=== PATIENT | female | born 1980 | race Asian ===

== ENCOUNTER 2020-04-22 09:56 | Outpatient (REF) | payer OTHER, SELFPAY ==
[2020-04-22 11:10] LABS: MANUAL DIFF FLAG NO
[2020-04-22 11:17] LABS: Basophils Absolute Auto 0.1 X10*3/uL (0.0-0.2); Eosinophils Absolute Auto 0.1 X10*3/uL (0.0-0.4); Eosinophils Percent Auto 1.2 % (0-4); Hematocrit 40.1 % (37-47); Hemoglobin 13.3 g/dl (12.0-16.0); Lymphocytes Absolute Auto 2.1 X10*3/uL (1.2-4.9); Lymphocytes Percent Auto 41.1 % (20-40); Mean Corpuscular HGB Conc 33.2 g/dl (31.0-35.0); Mean Corpuscular Hemoglobin 28.6 pg (27.0-33.0); Mean Corpuscular Volume 86.2 fL (80-98); Monocytes Absolute Auto 0.4 X10*3/uL (0.1-1.2); Monocytes Percent Auto 7.5 % (2-11); Neutrophils Absolute Auto 2.5 X10*3/uL (2.0-8.3); Neutrophils Percent Auto 49.2 % (45-73); Platelet Count 345 X10*3/uL (160-400); Red Blood Count 4.65 X10*6/uL (4.20-5.50); Red Cell Distribution Width 12.5 % (11.0-16.0); White Blood Count 5.1 X10*3/uL (4.8-10.8)
[2020-04-22 12:04] LABS: Anion Gap 10 (12-20); Blood Urea Nitrogen 10 mg/dL (9-16); Calcium 8.6 mg/dL (8.4-10.2); Carbon Dioxide 23 mmol/L (22-29); Chloride 108 mmol/L (96-108); Cholesterol 139 mg/dL; Estimated Glomerular Filt Rate > 60; Glucose Fasting 86 mg/dL (60-99); HDL Cholesterol 43 mg/dL; LDL Cholesterol Calculated 86 mg/dl; Potassium 3.9 mmol/L (3.3-5.1); Sodium 137 mmol/L (135-145); Triglycerides 53 mg/dL
[2020-04-22 12:11] LABS: Vitamin D 25-OH Total 9.9 ng/mL (>30)
== END 2020-04-22 09:57 | disposition home or self-care (01) ==
LOC: HO.HMGCLDS 09:56
PROVIDERS: PCP Internal Medicine; Visit Provider Internal Medicine
DX: Z00.01 Encounter for general adult medical examination with abnormal findings (principal); I10 Essential (primary) hypertension; E66.9 Obesity, unspecified
CPT/HCPCS: 36415; 80048; 80061; 82306; 85025

== ENCOUNTER 2020-09-16 08:30 | Outpatient (RCR) | payer OTHER, SELFPAY ==
--- NOTE | 2020-09-16 09:27 | MHC.OT.DC ---
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 Pt primarily limited by right shoulder pain .Pt to pursue medical treatment for right shoulder Goals for left lateral epicondylitis met Electronically Signed By: Margy Prajapati OT CHT CLT Reviewed/agree with student documentation: N/A Therapist: Please Sign and return to therapist, thank you for your referral.
== END 2020-09-16 09:28 | disposition other institution (70) ==
LOC: HO.OT 08:30
PROVIDERS: PCP Internal Medicine; Visit Provider Internal Medicine
DX: M77.12 Lateral epicondylitis, left elbow (principal)
CPT/HCPCS: 97035; 97110; 97140; 97165

== ENCOUNTER → 2020-11-03 13:19 | Outpatient (BNVA) | payer OTHER, SELFPAY | PROVIDERS: PCP Internal Medicine; Visit Provider Advanced Practice Midwife ==

== ENCOUNTER 2020-12-09 13:00 | Outpatient (RCR) | payer OTHER, SELFPAY ==
--- NOTE | 2020-11-11 19:42 | MHC.PT.EP ---
[facility] [place] Office [place] Office [place] Office [address] [phone] F: [phone] F: [phone] F: [phone] F: [phone] Physical Therapy Plan of Care Date of Evaluation: Date of Surgery: Diagnosis: R shoulder pain Assessment: Pt is a 40 female referred to PT for eval and treat of R shoulder pain who presents with signs and Sx consistent with R shoulder dysfunction resulting in decreased tolerance for placing objects on a high shelf, pushing/ pulling/ lifting/ carrying objects of weight, as well as reaching her back for hygiene and dressing secondary to decreased R shoulder ROM and strength, decreased scapular posture, TTP of R anterior shoulder, and pain. Pt is deemed an appropriate candidate to receive skilled PT in order to address her physical limitations to improve her functional ability. Frequency and Duration: The patient will be seen 2 x / wk x 5 wks. Short Term Goals: initiate HEP with evidence of compliance. 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 symmetrical AROM achieved. Pt will be able to place objects on high shelf with managed sx; initial: 5/10 pain. Treatment Plan: Modalities to reduce pain, spasms and effusion. Manual therapy to restore motion and function. Therapeutic exercise to improve strength and flexibility. Neuromuscular re-education for posture and balance. Therapeutic activities to return to functional activities of daily living. Electronically signed by: Robe Wright PT. Please sign and return to therapist. Thank you for your referral.
== END 2020-12-09 19:56 | disposition home or self-care (01) ==
LOC: HO.PTCHIC 13:00
PROVIDERS: PCP Internal Medicine; Visit Provider Physician Assistant
DX: M25.511 Pain in right shoulder (principal)
CPT/HCPCS: 97110; 97140; 97161; 97530

== ENCOUNTER 2021-04-13 07:56 | Outpatient (REF) | payer OTHER, SELFPAY ==
[2021-04-13 11:43] LABS: Alanine Aminotransferase 19 U/L (0-31); Anion Gap 13 (12-20); Aspartate Amino Transferase 18 U/L (5-31); Blood Urea Nitrogen 11 mg/dL (9-16); Calcium 9.5 mg/dL (8.4-10.2); Carbon Dioxide 26 mmol/L (22-29); Chloride 104 mmol/L (96-108); Cholesterol 151 mg/dL; Estimated Glomerular Filt Rate > 60; Glucose Fasting 97 mg/dL (60-99); HDL Cholesterol 48 mg/dL; LDL Cholesterol Calculated 92 mg/dl; Potassium 4.5 mmol/L (3.3-5.1); Sodium 138 mmol/L (135-145); Triglycerides 58 mg/dL
[2021-04-13 11:53] LABS: Vitamin D 25-OH Total 15.5 ng/mL (>30)
== END 2021-04-13 07:57 | disposition home or self-care (01) ==
LOC: HO.HMGCLDS 07:56
PROVIDERS: Visit Provider Internal Medicine
DX: Z00.01 Encounter for general adult medical examination with abnormal findings (principal); E66.9 Obesity, unspecified
CPT/HCPCS: 36415; 80048; 80061; 82306; 84450; 84460

== ENCOUNTER 2021-11-07 14:07 | Outpatient (REF) | payer OTHER, SELFPAY ==
[2021-11-08 01:24] LABS: CT PCR NOT DETECTED (Not Detect.); NG PCR NOT DETECTED (Not Detect.)
[2021-11-08 12:20] LABS: BV Int Neg Control Negative (Negative); BV Int Pos Control Positive (Positive)
[2021-11-09 22:26] LABS: HPV mRNA E6/E7 rflx Not Detected (Not Detected)
== END 2021-11-07 14:08 | disposition home or self-care (01) ==
LOC: HO.LNP 14:07
PROVIDERS: Visit Provider Advanced Practice Midwife
DX: Z01.419 Encounter for gynecological examination (general) (routine) without abnormal findings (principal); Z11.51 Encounter for screening for human papillomavirus (HPV); N93.0 Postcoital and contact bleeding
CPT/HCPCS: 87480; 87491; 87510; 87591; 87624; 87660; 88142

== ENCOUNTER 2021-11-24 07:36 | Outpatient (REF) | payer OTHER, SELFPAY ==
--- NOTE | ~2021-11-24 | MM_ITS ---
EXAMINATION: MM SCREENING DIGITAL BREAST TOMOSYNTHESIS, BILATERAL CLINICAL INFORMATION: Screening. Asymptomatic. No prior breast imaging. Age 41. No known family history breast cancer. The lifetime risk of breast cancer based on the Tyrer-Cuzick Model is 12%. COMPARISON: None (current study represents initial baseline exam). TECHNIQUE: Digital breast tomosynthesis is performed in both the craniocaudal and mediolateral oblique views along with computer-aided detection (CAD). Synthesized 2D images are generated from the tomosynthesis. FINDINGS: There are scattered areas of fibroglandular density (ACR BI-RADS breast composition Category b). There are no abnormal calcifications. No architectural abnormality. The axilla and skin contours are unremarkable. Left breast has small focal grouped benign coarse calcification mid 3:00 position suggesting degenerating fibroadenoma. Right breast has subtle equal attenuation oval focal nodular asymmetric density central breast mid depth approximately 0.9 x 1.5 cm with obscured margins. This may be related to a cyst or fibroadenoma or summation artifact. Patient will be recalled for additional imaging. MM/MM tomosynthesis screening BI IMPRESSION: Right: -Oval equal attenuation focal nodular asymmetry central breast. Left: -No mammographic evidence of malignancy. ASSESSMENT: BI-RADS 0: Incomplete - Need Additional Imaging Evaluation RECOMMENDATION: 1. Additional views of the right breast (spot CC, spot ML0). 2. Targeted ultrasound if warranted after review of the additional views. 3. Radiology department staff will contact the patient for additional imaging. This patient's information was entered into a reminder system with a target due date for their next mammogram.
== END 2021-11-24 07:37 | disposition home or self-care (01) ==
LOC: HO.MAMMO 07:36
PROVIDERS: Visit Provider Advanced Practice Midwife
DX: Z12.31 Encounter for screening mammogram for malignant neoplasm of breast (principal)
CPT/HCPCS: 77063; 77067

== ENCOUNTER 2021-12-02 08:56 | Outpatient (REF) | payer OTHER, SELFPAY ==
--- NOTE | ~2021-12-02 | MM_ITS ---
EXAMINATION: MM DIAGNOSTIC DIGITAL BREAST TOMOSYNTHESIS, RIGHT US BREAST TARGETED LIMITED, RIGHT CLINICAL INFORMATION: Right breast density. COMPARISON: Mammography: 11/24/2021 TECHNIQUE: Digital breast tomosynthesis is performed. 2D images are generated from the tomosynthesis. The following views are obtained: Spot compression craniocaudal and mediolateral oblique views. Targeted right breast ultrasound. FINDINGS: There are scattered areas of fibroglandular density (ACR BI-RADS breast composition Category b). There is persistence of density approximately 6 o'clock position 3 cm from the nipple. It measures approximately 1.6 x 1.5 cm in size. Targeted ultrasound evaluation of the right breast demonstrates at approximately 6 o'clock position 3 cm from nipple a hypoechoic lesion with some irregularity of its margins. There is no internal vascularity present. The lesion is wider than it is tall. No abnormal distal sound shadowing is appreciated. The lesion measures approximately 1.2 x 1.2 x 0.9 cm in size. Ultrasound-guided core biopsy is recommended. Results are discussed with the patient at time of visit. Recommendation was called to referring provider's nurseZabrina by breast center patient navigator. MM/MM tomosynthesis added views R IMPRESSION: Right breast lesion 6 o'clock position 3 cm from the nipple which appears solid and for which ultrasound-guided core biopsy is recommended. ASSESSMENT: BI-RADS 4: Suspicious RECOMMENDATION: Ultrasound-guided core biopsy. This patient's information was entered into a reminder system with a target due date for their next mammogram.
== END 2021-12-02 08:57 | disposition home or self-care (01) ==
LOC: HO.MAMMO 08:56
PROVIDERS: Visit Provider Advanced Practice Midwife
DX: N64.89 Other specified disorders of breast (principal)
CPT/HCPCS: 76642; 77061; 77065

== ENCOUNTER → 2021-12-07 12:21 | Outpatient (BNVA) | payer OTHER, SELFPAY | PROVIDERS: PCP Internal Medicine; Visit Provider Obstetrics & Gynecology | DX: N93.0 Postcoital and contact bleeding (principal); N89.8 Other specified noninflammatory disorders of vagina; N88.9 Noninflammatory disorder of cervix uteri, unspecified | CPT/HCPCS: 10160; 99212 ==

== ENCOUNTER 2021-12-09 09:09 | Outpatient (REF) | payer OTHER, SELFPAY ==
--- NOTE | ~2021-12-09 | MM_ITS ---
EXAMINATION: ULTRASOUND GUIDED CORE BIOPSY BREAST, RIGHT POST PROCEDURE DIGITAL BREAST TOMOSYNTHESIS, RIGHT CLINICAL INFORMATION: 41-year-old with macrolobulated mass 6:00 right breast under 1.5 cm noted at baseline imaging, possibly fibroadenoma. COMPARISON: Mammography 11/24/2021, 12/02/2021, targeted right breast ultrasound 12/02/2021. FINDINGS: Proper informed consent is obtained from the patient after discussion of the procedure, potential risks and complications, and alternatives. Patient was given an opportunity for questions. The patient appeared to understand. The patient consented to the procedure and signed the consent form. GUIDANCE: Ultrasound-guided; aseptic technique. LESION: Macrolobulated mass 6:00 position 3 cm from nipple approximately 1.2 cm. APPROACH: Lateral medial. ANESTHESIA: 10 mL carbonated 1% lidocaine. DERMATOTOMY: Single skin boni dermatotomy performed. NEEDLE: 14-gauge Achieve core biopsy device with 13.5-gauge co-axial guide needle. CORES: 5. CLIP: HydroMARK; shape: open coil. POST PROCEDURE DIGITAL BREAST TOMOSYNTHESIS, RIGHT: The post biopsy mammogram is performed in separate room using separate digital tomography equipment from the biopsy procedure. CC and MLO views are obtained. Synthesized 2-D images are generated from the tomography. There are scattered areas of fibroglandular density (breast composition category: b). The clip marker is in position. No gross hematoma. The patient tolerated the procedure well. No immediate complications. Home instructions reviewed with the patient. Final pathology results are pending. MM/MM tomosynthesis diagnostic RT IMPRESSION: 1. Status post ultrasound-guided core biopsy right breast. 2. Clip placed: HydroMARK; shape: open coil. 3. Pathology pending. An addendum report will be issued.
== END 2021-12-09 09:10 | disposition home or self-care (01) ==
LOC: HO.MAMMO 09:09
PROVIDERS: Visit Provider Surgery
DX: R92.8 Other abnormal and inconclusive findings on diagnostic imaging of breast (principal)
CPT/HCPCS: 19083; 77061; 77065; 88305; 99202; A4648

== ENCOUNTER → 2021-12-15 14:36 | Outpatient (BNVA) | payer OTHER, SELFPAY | PROVIDERS: PCP Internal Medicine; Visit Provider Surgery | DX: R92.8 Other abnormal and inconclusive findings on diagnostic imaging of breast (principal) | CPT/HCPCS: 99212 ==

== ENCOUNTER 2021-12-28 07:19 | Outpatient (REF) | payer OTHER, SELFPAY ==
--- NOTE | ~2021-12-28 | MR_ITS ---
EXAMINATION: MR SHOULDER WITHOUT CONTRAST, RIGHT CLINICAL INFORMATION: Right shoulder pain and soreness. COMPARISON: Right shoulder radiographs dated 07/28/2019. TECHNIQUE: MRI of the shoulder without contrast was performed on a high-field scanner. FINDINGS: ROTATOR CUFF: Mild supraspinatus tendinosis without a measurable rotator cuff tendon tear. Mild teres minor muscle atrophy. BICEPS: Intact. CORACOACROMIAL ARCH: The undersurface of the acromion is minimally curved with no subacromial spur. [id number] acromioclavicular osteoarthritis. LABRUM/CAPSULE: Linear fluid signal extending through the undersurface of the posterosuperior labrum, consistent with a nondisplaced undersurface tear. Adjacent paralabral cyst extending into the glenoid notch which measures up to 2.2 x 2.4 x 2.6 cm. GLENOHUMERAL JOINT/MARROW: No acute osseous abnormality. Intact articular cartilage. MR/MR shoulder RT wo con IMPRESSION: 1. Nondisplaced undersurface tear of the posterosuperior labrum with an adjacent paralabral cyst extending into the glenoid notch measuring up to 2.6 cm. 2. Mild supraspinatus tendinosis without a measurable rotator cuff tendon tear. Mild teres minor muscle atrophy. 3. [id number]-cp-[id number] acromioclavicular osteoarthritis.
== END 2021-12-28 07:20 | disposition home or self-care (01) ==
LOC: HO.MRI 07:19
PROVIDERS: Visit Provider Internal Medicine
DX: G89.29 Other chronic pain (principal); M25.511 Pain in right shoulder
CPT/HCPCS: 73221

== ENCOUNTER 2022-02-02 08:37 | Outpatient (AMB) | payer OTHER, SELFPAY ==
[2022-02-02 08:51] VITALS: BP 120/70; PULSE 73; O2SAT 99; BMI 37.3
--- NOTE | 2022-02-02 08:51 | MHC.PC.OV ---
Vital Signs 02/02/22 08:51 Height 5 ft 7 in Weight 238 lb BMI 37.3 BP 120/70 Blood Pressure Location Lt brachial Position Sitting Pulse 73 Pulse Source Pulse Oximeter Pulse Oximetry (%) 99 Oxygen Delivery Method Room Air Intake Visit Reasons: W/C FMLA paperwork Intake Note: Pt is here today to discuss w/c FMLA paperwork Allergies No Known Allergies [No Known Allergies*] Allergy (Verified 09/13/22 11:02) Tobacco use date assessed: 02/02/22 HPI W/C FMLA paperwork HPI Details 41 year old lady here today requesting for her FMLA application to be completed. She had an MRI of her right shoulder last month which showed nondisplaced tear of the posterior superior labrum of her right shoulder with an adjacent paralabral cyst extending into the glenoid notch, and mild supraspinatus tendinosis and mild to moderate acromioclavicular osteoarthritis seen. She has been referred to [facility] for further treatment. She has had physical therapy twice with only partial improvement noted. 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 [facility] Medical History (Updated 09/13/22 @ 11:25 by Arabella Oliveros MD) Chronic right shoulder pain GERD (gastroesophageal reflux disease) Labral tear of shoulder Left lateral epicondylitis Obesity (BMI 35.0-39.9 without comorbidity) JULIETH (obstructive sleep apnea) Osteoarthritis of right AC (acromioclavicular) joint Pelvic floor dysfunction PONV (postoperative nausea and vomiting) depression Right shoulder strain Right shoulder tendinitis Tendinosis of right shoulder Vitamin D deficiency Well woman exam with routine gynecological exam Surgical History (Updated 09/13/22 @ 11:25 by Arabella Oliveros MD) History of lumpectomy Family History Father Emphysema, unspecified CVD (cardiovascular disease) Mother HTN (hypertension) Diabetes mellitus Brother HTN (hypertension) Maternal Grandmother No problems noted. Maternal Grandfather History of CVA (cerebrovascular accident) Brother No problems noted. Sister No problems noted. Sister No problems noted. Son No problems noted. Daughter No problems noted. Maternal Aunt Lung cancer Social History Housing: House Alcohol intake: current Alcohol intake frequency: does not drink Patient Tobacco Use Status: Never used Tobacco e-Cigarette/Vaping Use: Never Used service: Yes Current occupational status: employed Cognitive needs: No Hearing needs: No Vision needs: No Female Reproductive History Menstrual Age of Menarche: 13 Questionnaire Thrive Questionnaire Date Thrive assessed: 04/04/21 JOAO-7 AMB Questionnaire JOAO-7 Date JOAO - 7 assessed: 04/04/21 Source: Developed by Drs. Shady Reynaga, Jennifer Mike, Anuel Abreu and colleagues, with an educational vadim from [employer]. Review of Systems Const All systems reviewed & are unremarkable except as noted in HPI and below Physical exam (Primary Care) Vital Signs: Last Vital Signs Pulse 73 02/02/22 08:51 BP 120/70 02/02/22 08:51 Pulse Ox 99 02/02/22 08:51 Oxygen Delivery Method Room Air 02/02/22 08:51 BMI result Body Mass Index 37.3 Tobacco/Smoking Status: Tobacco use Status Tobacco use date assessed 02/02/22 02/02/22 08:55 Patient Tobacco Use Status Never used Tobacco 02/02/22 08:55 e-Cigarette/Vaping Use Never Used 02/02/22 08:55 Thrive Assessment: Date of Thrive Assessment Date Thrive assessed 04/04/21 02/02/22 08:55 Const General: no acute distress, alert, awake and Physically active Nutritional Appearance: obese Orientation/consciousness: patient oriented x3 Neck Neck: Yes full ROM, Yes no lymphadenopathy and Yes supple Skin General skin exam: no rashes or lesions noted Neuro General: patient oriented x3, gait normal, tone normal, moves all extremities, Normal light touch and pain sensation, no focal motor deficits and CN's II-XI intact bilaterally Extrem Other: Has pain over right AC joint and glenohumeral joint area on abduction more than 90 degrees, positive impingement sign Assessment and Plan Assessment & Plan (1) Labral tear of shoulder: Comment: injured at work 06/2020 Code(s): S43.439A - Superior glenoid labrum lesion of unspecified shoulder, initial encounter Plan: FMLA form completed. Currently being followed at [facility] (2) Osteoarthritis of right AC (acromioclavicular) joint: Code(s): M19.011 - Primary osteoarthritis, right shoulder Plan: Currently being followed at [facility], [facility] form completed (3) Tendinosis of right shoulder: Code(s): M67.813 - Other specified disorders of tendon, right shoulder Plan: Currently being followed at [facility], and family form completed Coding Level of Care Code Est Pt Level 3 (36909) Diagnoses Labral tear of shoulder S43.439A Osteoarthritis of right AC (acromioclavicular) joint M19.011 Tendinosis of right shoulder M67.813
== END 2022-02-02 09:50 | disposition home or self-care (01) ==
LOC: HO.HMGC 08:37
PROVIDERS: PCP Internal Medicine; Visit Provider Internal Medicine
DX: S43.439A Superior glenoid labrum lesion of unspecified shoulder, initial encounter (principal); M19.011 Primary osteoarthritis, right shoulder; M67.813 Other specified disorders of tendon, right shoulder
CPT/HCPCS: 99213

== ENCOUNTER 2022-02-22 11:12 | Outpatient (REF) | payer OTHER, SELFPAY ==
--- NOTE | ~2022-02-22 | US_ITS ---
EXAMINATION: US PELVIS CLINICAL INFORMATION: Postcoital and contact bleeding. Last menstrual period 02/12/2022. COMPARISON: 09/12/2018 TECHNIQUE: Ultrasound of the pelvis is performed using both transabdominal and transvaginal transducers along with Doppler. Transvaginal imaging is performed due to inadequate visualization transabdominally. FINDINGS: The uterus measures 10.5 x 3.9 x 5.6 cm. No discrete fibroids. Endometrial thickness is 1.1 cm. Possible cervical polyp measures 0.9 x 0.5 x 0.8 cm and demonstrates internal vascularity. Adjacent free fluid present in the cervical canal. Right ovary measures 3.2 x 2.0 x 2.6 cm, volume 8.7 mL. Right ovarian 1.4 x 1.7 x 1.1 cm cyst with possible 1.4 x 1.3 x 1.1 cm daughter cyst. Limited visualization. Left ovary measures 2.9 x 1.5 x 2.3 cm, volume 5.2 mL and is grossly unremarkable. Limited visualization. No significant free fluid. US/US pelvic and transvaginal IMPRESSION: Possible cervical polyp 0.9 cm with surrounding fluid. Gynecologic consultation and possible biopsy recommended. Recommend follow-up ultrasound in 6-8 weeks.
== END 2022-02-22 11:13 | disposition home or self-care (01) ==
LOC: HO.US 11:12
PROVIDERS: Visit Provider Obstetrics & Gynecology
DX: N93.0 Postcoital and contact bleeding (principal)
CPT/HCPCS: 76830; 76856

== ENCOUNTER 2022-03-02 09:52 | Outpatient (REF) | payer OTHER, SELFPAY ==
--- NOTE | ~2022-03-02 | MM_ITS ---
EXAMINATION: MM MAMMOGRAM GUIDED RFID LOCALIZATION BREAST, RIGHT CLINICAL INFORMATION: Examination gland or area of recent ultrasound guided core biopsy right breast (fibrocystic change with apocrine metaplasia). COMPARISON: Mammography 11/24/2021, 12/02/2021, ultrasound 12/02/2021, ultrasound-guided core biopsy and postbiopsy mammography 12/09/2021. TECHNIQUE NEEDLE LOC: Proper informed consent is obtained from the patient after discussion of the procedure, potential risks and complications, and alternatives including declining the procedure today. Patient was given an opportunity for questions. The patient appeared to understand. The patient consented to the procedure and signed the consent form. GUIDANCE: Digital mammography. APPROACH: Medial Lateral. TARGET: HydroMARK; shape: open coil. ANESTHESIA: carbonated lidocaine 1%: 7 mL. LOCALIZATION SYSTEM: [employer] LOCallizer Wire-Free Guidance System with 12g needle applicator. RADIOFREQUENCY TAG: ID # [id number]. DERMATOTOMY: Single skin-boni dermatotomy performed. RF Tag ID confirmed with LOCalizer Guidance System prior to placement. The skin is prepped and local anesthesia administered. The needle is positioned and RFID tag deployed. Final images demonstrate the LOCalizer RF tag to reside 3 mm from the biopsy clip on the CC view and 5 mm from the biopsy clip on the ML view. The patient tolerated the procedure well and had no immediate complications. Dressing placed and home instructions reviewed. MM/MM needle loc RT IMPRESSION: -Status post right breast RFID localization.
[2022-03-02] MEDS: Lidocaine HCl 1 % 20 ML VIAL 8 ML SUBCUT (10:51)
[2022-03-02] MEDS: Sodium Bicarbonate 8.4% 50 MEQ/50 ML VIAL SUBCUT (10:52)
== END 2022-03-02 09:53 | disposition home or self-care (01) ==
LOC: HO.MAMMO 09:52
PROVIDERS: PCP Internal Medicine; Visit Provider Surgery
DX: R92.8 Other abnormal and inconclusive findings on diagnostic imaging of breast (principal)
CPT/HCPCS: 19281

== ENCOUNTER 2022-03-09 09:01 | Outpatient (REF) | payer OTHER, SELFPAY | END 2022-03-09 09:02 | disposition home or self-care (01) | LOC: HO.LNP 09:01 | PROVIDERS: Visit Provider Obstetrics & Gynecology | DX: N88.9 Noninflammatory disorder of cervix uteri, unspecified (principal); N89.8 Other specified noninflammatory disorders of vagina; N84.1 Polyp of cervix uteri | CPT/HCPCS: 57454; 88305; 99212 ==

== ENCOUNTER 2022-03-15 06:53 | Day surgery (SDC) | payer OTHER, SELFPAY ==
[2022-01-11 11:36] VITALS: BMI 37.3
[2022-03-08 19:22] VITALS: BMI 36.8
--- NOTE | 2022-03-14 08:34 | HO.ANESPROP2 ---
Documented by User: Natasha Gilbert NP 03/14/22 08:34 HPI - Anesthesia Eval Consult details Narrative: 41yo F for Right Breast Lumpectomy PMFSH Active Problems Active Problems: All Active Problems (Updated 03/09/22 @ 09:36 by Terrence Welch MD) Endocervical polyp (Acute) Acute conjunctivitis, right eye (Acute) Chronic ankle pain (Acute) Vaginal wall cyst (Acute) Abnormal cervix finding (Acute) Postcoital bleeding (Acute) Abnormal ultrasound of breast (Acute) Achilles tendinitis, left leg (Acute) JULIETH (obstructive sleep apnea) (Acute) Tendinosis of right shoulder (Acute) Osteoarthritis of right AC (acromioclavicular) joint (Acute) Labral tear of shoulder (Acute) Chronic right shoulder pain (Acute) Right shoulder tendinitis (Acute) Left lateral epicondylitis (Acute) Vitamin D deficiency (Acute) Obesity (BMI 35.0-39.9 without comorbidity) (Acute) Past Medical History Medical History Chronic right shoulder pain GERD (gastroesophageal reflux disease) Labral tear of shoulder Left lateral epicondylitis Obesity (BMI 35.0-39.9 without comorbidity) JULIETH (obstructive sleep apnea) Osteoarthritis of right AC (acromioclavicular) joint Pelvic floor dysfunction depression Right shoulder strain Right shoulder tendinitis Tendinosis of right shoulder Vitamin D deficiency Well woman exam with routine gynecological exam Family History Family History Father Emphysema, unspecified CVD (cardiovascular disease) Mother HTN (hypertension) Diabetes mellitus Brother HTN (hypertension) Maternal Grandmother No problems noted. Maternal Grandfather History of CVA (cerebrovascular accident) Brother No problems noted. Sister No problems noted. Sister No problems noted. Son No problems noted. Daughter No problems noted. Maternal Aunt Lung cancer Surgical History Surgical History History of lumpectomy Social History Social History Housing: House Alcohol intake: current Patient Tobacco Use Status: Never used Tobacco e-Cigarette/Vaping Use: Never Used Use of substances other than those prescribed or required for medical reasons: No Are you DNR?: No Advance Directives: No Advance Directives Information Provided: Yes Advance Directives on File: No Recently lost weight without trying: No Nutrition Risks: No Nutritional Risk Patient : No service: Yes Current occupational status: employed Cognitive needs: No Hearing needs: No Vision needs: No Meds Allergies Allergy/AdvReac Type Severity Reaction Status Date / Time No Known Allergies Allergy Verified 03/09/22 09:15 [No Known Allergies*] Home Medications Medication Instructions Recorded Confirmed Last Taken Type ferrous sulfate 325 mg (65 mg 325 mg PO Q OTHER DAY 02/02/22 03/08/22 03/01/22 History iron) tablet Exam Exam Date and Time: March 14, 2022 0834 Height,Weight and Vital Signs: Height 5 ft 7 in Weight 106.594 kg Assessment and Plan Assessment Anesthesia Assessment: Chart Reviewed Documented by User: Radha Carver MD 03/15/22 07:51 PMFSH Past Medical History Medical History Chronic right shoulder pain GERD (gastroesophageal reflux disease) Labral tear of shoulder Left lateral epicondylitis Obesity (BMI 35.0-39.9 without comorbidity) JULIETH (obstructive sleep apnea) Osteoarthritis of right AC (acromioclavicular) joint Pelvic floor dysfunction depression Right shoulder strain Right shoulder tendinitis Tendinosis of right shoulder Vitamin D deficiency Well woman exam with routine gynecological exam Family History Family History Father Emphysema, unspecified CVD (cardiovascular disease) Mother HTN (hypertension) Diabetes mellitus Brother HTN (hypertension) Maternal Grandmother No problems noted. Maternal Grandfather History of CVA (cerebrovascular accident) Brother No problems noted. Sister No problems noted. Sister No problems noted. Son No problems noted. Daughter No problems noted. Maternal Aunt Lung cancer Family history of problems with anesthesia: No Surgical History Surgical History History of lumpectomy Social History Social History Housing: House Alcohol intake: current Patient Tobacco Use Status: Never used Tobacco e-Cigarette/Vaping Use: Never Used Use of substances other than those prescribed or required for medical reasons: No Are you DNR?: No Advance Directives: No Advance Directives Information Provided: Yes Advance Directives on File: No Recently lost weight without trying: No Nutrition Risks: No Nutritional Risk Patient : No service: Yes Current occupational status: employed Cognitive needs: No Hearing needs: No Vision needs: No Meds Allergies Allergy/AdvReac Type Severity Reaction Status Date / Time No Known Allergies Allergy Verified 03/09/22 09:15 [No Known Allergies*] Home Medications Medication Instructions Recorded Confirmed Last Taken Type ferrous sulfate 325 mg (65 mg 325 mg PO Q OTHER DAY 02/02/22 03/08/22 03/01/22 History iron) tablet Exam Airway Mallampati Class: II TM Dist: >3cm Neck ROM: Full Heart: rrr Lungs: cta Assessment and Plan Assessment Anesthesia Assessment: Anesthesia Plan Discussed Final Anesthetic Review Family History of Problems with Anesthesia: No NPO: Yes ASA Class: II Final Preanesthetic Review: No Changes in Pt Med Stat, Meds/Allgs Chart Reviewed, Consent Obtained/Reviewed and Anes Risks/Benef Reviewed Patient Risk: Low Procedure Risk: Low Anesthetic Plan Anesthetic Plan: GA and Agree w/ Assess. and Plan Disposition: Standard PACU
[2022-03-15] VITALS (7 sets, daily range): BP systolic 125–152; BP diastolic 78–93; PULSE 61–79; RESP 16–18; TEMP 36.2–36.4; O2SAT 97–100; BMI 36.0
--- NOTE | ~2022-03-15 | MM_ITS ---
EXAMINATION: MM SPECIMEN X-RAY BREAST, RIGHT BREAST CLINICAL INDICATION: Fibrocystic change with apocrine metaplasia. COMPARISON: Mammogram guided RF localization right breast 03/02/2022, ultrasound-guided core biopsy and mammography 12/09/2021, ultrasound right breast 12/02/2021, mammography 12/02/2021 and 11/24/2021. TECHNIQUE: Single radiograph of the excised breast tissue is performed using digital mammography. FINDINGS: The specimen shows the Radiofrequency localizer tag in the specimen. The open coil biopsy clip marker is adjacent to the RF tag. Results were called to Dr. Denzel Harrington in the operating room at the time of imaging.
[2022-03-15 07:23] LABS: UPreg QC Valid YES; Urine Pregnancy NEGATIVE (NEGATIVE)
--- NOTE | 2022-03-15 07:41 | MHC.SHP ---
Pre-Procedural Eval Section A Date of Service: 03/15/22 The patient is an INPATIENT: No Changes since office visit: No Cold of Flu in the past 2 weeks, No New Medical Problems, No Changes in Medication and No Patient answered all questions The History & Physical has been completed within 30 days and I have reviewed it.: No Section B Chief Complaint: rt br abnormal & inconclusive,radiofrequency seed Details of Present Illness: No change is symptoms Relevant Social History: None Present Medications: see Short Stay Collaborative assessment Medical History: No relevant PMH History of Previous Operations: No relevant previous surgery Allergies: Allergies Allergy/AdvReac Type Severity Reaction Status Date / Time No Known Allergies Allergy Verified 03/09/22 09:15 [No Known Allergies*] Review of Systems Sugical H&P ROS: Negative: Constitution, Cardiovascular, Respiratory, Neurological, Psychiatric, Hem-Onc, Allergic/Immunologic, Gastrointestinal, Genitourinary, Musculoskeletal, Integumentary, Endocrine and Eyes/Ears/Nose/Throat Exam Surgical H&P Exam: Normal: HEENT, Normal: Heart, Normal: Lungs, Normal: Extremities, Normal: Abdomen, Normal: Skin and Normal: Neurological Plan Diagnosis/Plan: Unchanged I have reviewed the history and physical and performed a pertinent physical examination on my patient. No changes have occurred unless specified. Time Spent With Patient Time: Total time managing care of this patient today ____ minutes.
[2022-03-15] MEDS: Lactated Ringers 1,000 ML 100 ML IVCONT (07:49)
--- NOTE | 2022-03-15 10:05 | W.PM.OPN ---
Operative Note Operative Note Date of Service: 03/15/22 Narrative: Preoperative diagnosis: Right breast mass Postoperative diagnosis: same Procedure: right breast lumpectomy with radiologic guidance Surgeon: Denzel Harrington MD Sensor Specialist: Jessy Bansal PA-C, MARGUERITE Elias Anesthesia: general LMA Indications for procedure: 41-year-old female patient presenting with a recent mammogram which revealed a density in the right breast in the central portion of the breast. sentinel node biopsy revealed metaplasia without atypia or malignancy. She presents today for a wider excision to assure complete removal at the patient's request. Operative findings: Marking clip and RF tag within the specimen Specimen: right breast lumpectomy Estimated blood loss: 5 mL Complications: none Procedure details: patient was brought the OR placed in a supine position. After administering general anesthesia the patient's right breast was prepped with ChloraPrep and draped in a sterile fashion. A surgical time-out was called the consent confirmed. Preoperative antibiotics were provided. Venodyne boots were in place. Local anesthesia consisting of 0.5% Sensorcaine with epinephrine was then infiltrated around the nipple-areolar complex in the inferior medial portion of the breast. This was carried out through subcutaneous tissue. Superior and inferior skin flaps were then created. Using the RF localizes as a guide a core of tissue surrounding the localizing clip was then performed using electrocautery. Dissection continued along the inferior margin followed by the medial margin superior margin posterior margin and finally the lateral margin. The specimen was removed and the clip confirmed within the specimen. Specimen x-ray confirmed the clip within the specimen. Gross pathology also confirmed the previous biopsy cavity and lesion within the specimen. Wounds were then irrigated with saline solution. Hemostasis was assured using electrocautery and free ties of 3-0 Polysorb. Deep breast tissue was then reapproximated using interrupted 3-0 Polysorb sutures. Superficial breast tissue and dermis were reapproximated using interrupted 3-0 Polysorb sutures. Skin was closed using a running subcuticular 4-0 Polysorb suture. Steri-Strips, 2 x 2 gauze and Tegaderm were then applied. The patient tolerated the procedure well. Sponge, instrument, and needle counts were reported as correct. The patient was transferred to PACU in stable condition.
== END 2022-03-15 11:36 | disposition home or self-care (01) ==
PROVIDERS: Nurse Practitioner; Visit Provider Surgery
PROC: (CPT 19301; principal; 2022-03-15 09:10)
DX: N60.81 Other benign mammary dysplasias of right breast (principal); D24.1 Benign neoplasm of right breast; N60.21 Fibroadenosis of right breast; G47.33 Obstructive sleep apnea (adult) (pediatric); E55.9 Vitamin D deficiency, unspecified; E66.9 Obesity, unspecified; Z68.37 Body mass index [BMI] 37.0-37.9, adult; Z79.1 Long term (current) use of non-steroidal anti-inflammatories (NSAID); Z79.899 Other long term (current) drug therapy
CPT/HCPCS: 19301; 81025; 88307; 88329; J0131; J0690; J1100; J2405; J2795; J3010

== ENCOUNTER → 2022-03-20 09:24 | Outpatient (BNVA) | payer OTHER, SELFPAY | PROVIDERS: Visit Provider Obstetrics & Gynecology | DX: N88.9 Noninflammatory disorder of cervix uteri, unspecified (principal); N84.1 Polyp of cervix uteri; N89.8 Other specified noninflammatory disorders of vagina | CPT/HCPCS: 99212 ==

== ENCOUNTER → 2022-03-23 13:06 | Outpatient (BNVA) | payer OTHER, SELFPAY | PROVIDERS: Visit Provider Physician Assistant Surgical | DX: N63.15 Unspecified lump in the right breast, overlapping quadrants (principal); Z98.890 Other specified postprocedural states | CPT/HCPCS: 99212 ==

== ENCOUNTER 2022-03-31 07:30 | Day surgery (SDC) | payer OTHER, SELFPAY ==
[2022-03-27 11:31] VITALS: BMI 37.7
[2022-03-31] VITALS (7 sets, daily range): BP systolic 129–148; BP diastolic 71–93; PULSE 59–89; RESP 14–18; TEMP 36.4–36.9; O2SAT 96–98
--- NOTE | 2022-03-31 08:39 | HO.ANESPROP2 ---
[facility] Active Problems Active Problems: All Active Problems (Updated 03/27/22 @ 11:10 by Jodi Israel RN) S/P lumpectomy, right breast (Acute) Acute conjunctivitis, right eye (Acute) Chronic ankle pain (Acute) Vaginal wall cyst (Acute) Abnormal cervix finding (Acute) Postcoital bleeding (Acute) Abnormal ultrasound of breast (Acute) Achilles tendinitis, left leg (Acute) Endocervical polyp (Acute) JULIETH (obstructive sleep apnea) (Acute) Tendinosis of right shoulder (Acute) Osteoarthritis of right AC (acromioclavicular) joint (Acute) Labral tear of shoulder (Acute) Chronic right shoulder pain (Acute) Right shoulder tendinitis (Acute) Left lateral epicondylitis (Acute) Vitamin D deficiency (Acute) Obesity (BMI 35.0-39.9 without comorbidity) (Acute) Past Medical History Medical History Chronic right shoulder pain GERD (gastroesophageal reflux disease) Labral tear of shoulder Left lateral epicondylitis Obesity (BMI 35.0-39.9 without comorbidity) JULIETH (obstructive sleep apnea) Osteoarthritis of right AC (acromioclavicular) joint Pelvic floor dysfunction PONV (postoperative nausea and vomiting) depression Right shoulder strain Right shoulder tendinitis Tendinosis of right shoulder Vitamin D deficiency Well woman exam with routine gynecological exam Family History Family History Father Emphysema, unspecified CVD (cardiovascular disease) Mother HTN (hypertension) Diabetes mellitus Brother HTN (hypertension) Maternal Grandmother No problems noted. Maternal Grandfather History of CVA (cerebrovascular accident) Brother No problems noted. Sister No problems noted. Sister No problems noted. Son No problems noted. Daughter No problems noted. Maternal Aunt Lung cancer Family history of problems with anesthesia: No Surgical History Surgical History History of lumpectomy History of Problems with Anesthesia: No Social History Social History Housing: House Alcohol intake: current Alcohol intake frequency: does not drink Patient Tobacco Use Status: Never used Tobacco e-Cigarette/Vaping Use: Never Used Use of substances other than those prescribed or required for medical reasons: No Are you DNR?: No Advance Directives: No Advance Directives Information Provided: Yes service: Yes Current occupational status: employed Cognitive needs: No Hearing needs: No Vision needs: No Meds Allergies Allergy/AdvReac Type Severity Reaction Status Date / Time No Known Allergies Allergy Verified 03/23/22 13:34 [No Known Allergies*] Active Medications: Current Medications Lactated Ringer's (Lr) 1,000 mls @ 80 mls/hr IVCONT .[id number] [facility] Home Medications Medication Instructions Recorded Confirmed Last Taken Type ferrous sulfate 325 mg (65 mg 325 mg PO Q OTHER DAY 02/02/22 03/08/22 03/01/22 History iron) tablet Exam Exam Date and Time: March 31, 2022 0839 Height,Weight and Vital Signs: Height 5 ft 7 in Weight 109.316 kg Airway Mallampati Class: II TM Dist: >3cm Neck ROM: Full Loose/Missing/Broken Teeth: No Heart: RRR Lungs: CTA Assessment and Plan Assessment Anesthesia Assessment: Anesthesia Plan Discussed and Chart Reviewed Final Anesthetic Review Family History of Problems with Anesthesia: No History of Problems with Anesthesia: No NPO: Yes ASA Class: III Final Preanesthetic Review: Meds/Allgs Chart Reviewed and Anes Risks/Benef Reviewed Patient Risk: Intermediate Procedure Risk: Low Anesthetic Plan Anesthetic Plan: GA Disposition: Standard PACU
[2022-03-31] MEDS: Lactated Ringers 1,000 ML 80 ML IVCONT (08:47)
[2022-03-31 08:58] LABS: UPreg QC Valid YES; Urine Pregnancy NEGATIVE (NEGATIVE)
[2022-03-31] MEDS: Scopolamine 1.5 MG PATCH.TD.3 TRANSDERMA (09:01)
--- NOTE | 2022-03-31 09:08 | MHC.SHP ---
Pre-Procedural Eval Section A Date of Service: 03/31/22 Section B Chief Complaint: Polyp of cervix uteri,disorder of cervix and vagin Allergies: Allergies Allergy/AdvReac Type Severity Reaction Status Date / Time No Known Allergies Allergy Verified 03/23/22 13:34 [No Known Allergies*] Plan I have reviewed the history and physical and performed a pertinent physical examination on my patient. No changes have occurred unless specified. Time Spent With Patient Time: Total time managing care of this patient today ____ minutes.
--- NOTE | 2022-03-31 10:08 | P.BOP_ITS ---
Brief Operative Note Date of Service: 03/31/22 Pre-op diagnosis: Vaginal cyst wall and endocervical polyp Post-op diagnosis: same Procedure: Hysteroscopy D&C, Polypectomy with vaginal cyst wall I&D and marsupialization Surgeon: Terrence Welch MD Anesthesia: GLMA Was an Police Dispatcher used for this Procedure?: No Estimated blood loss (mL): 0 Pathology: other (Endometrial Scrapping. Polyp) Condition: stable Disposition: PACU
--- NOTE | 2022-03-31 10:09 | W.PM.OPN ---
Operative Note Operative Note Date of Service: 03/31/22 Narrative: Preop Diagnosis: Endocervical polyp and right vaginal cyst wall Operation: Diagnostic Hysteroscopy, Dilataion & Curettage and polypectomy, right vaginal cyst wall I&D and marsupialization Post Op Diagnosis: Endometrial Polyp, right vaginal cyst wall QBL: Minimal Anesthesia: GLMA Surgeon: Terrence Welch MD International Trade Teacher: None Complication: None Pathology: Endometrial Scrapings, Endometrial polyp Procedure: The patient was put in the dorsal lithotomy position, scrubbed, and draped in the usual manner. A sterile speculum was inserted in the patient's vagina. Right vaginal cyst wall was identified, using a scalpel I&D was performed and a 3 cc of mucousy bloody discharge drained, then 2 sutures 3-0 Vicryl were used to suture the cyst wall was sutured to the vaginal mucosa, and the and hemostasis was assured . Next, the anterior lip of the cervix was grasped with a single tooth tenaculum. The cervix was dilated up to 5 mm, then the scope was inserted in the patient's uterus. Inspection revealed endocervical polyp. The Myosure Reach device was used; it was introduced through the operative channel and polypectomy done with no complications. The scope was then taken out from the uterine cavity, sharp curettings was carried on with minimal to moderate amount of tissues retrieved. At the end of the procedure, all instruments were taken out of the patient uterine and vaginal cavity. The single tooth tenaculum was removed and homeostasis was assured using pressure,. The patient tolerated the procedure well and was transferred to the PACU in a stable condition.
[2022-03-31] MEDS: oxyCODONE HCl Immed Release 5 MG TABLET PO (10:30)
[2022-03-31] MEDS: Acetaminophen 325 MG TABLET 650 MG PO (10:31)
== END 2022-03-31 11:30 | disposition home or self-care (01) ==
PROVIDERS: Anesthesiology; Visit Provider Obstetrics & Gynecology
PROC: 0UDB8ZZ Extraction of Endometrium, Via Natural or Artificial Opening Endoscopic (ICD-10-PCS; CPT 58558; principal; 2022-03-31 09:30)
DX: N84.1 Polyp of cervix uteri (principal); N90.7 Vulvar cyst; G47.33 Obstructive sleep apnea (adult) (pediatric); E66.9 Obesity, unspecified; Z68.36 Body mass index [BMI] 36.0-36.9, adult
CPT/HCPCS: 58558; 58999; 81025; 88305; J1885; J2405; J3010

== ENCOUNTER 2022-04-17 11:44 | Outpatient (AMB) | payer OTHER, SELFPAY ==
--- NOTE | 2022-04-17 12:23 | MHC.PC.OV ---
Vital Signs 04/17/22 12:27 Height 5 ft 7 in Weight 245 lb 8 oz BMI 38.4 BP 138/90 H Blood Pressure Location Rt brachial Position Sitting Pulse 59 Pulse Source Pulse Oximeter Pulse Oximetry (%) 97 Oxygen Delivery Method Room Air Intake Visit Reasons: Pressure Headaches Intake Note: Pt is here c/o of having pressure headaches. Allergies No Known Allergies [No Known Allergies*] Allergy (Verified 09/13/22 11:02) Medication List - Last Reconciled 10/25/22 by Arabella Oliveros MD albuterol sulfate 90 mcg/actuation 1 inh inhalation QID PRN amlodipine 5 mg PO DAILY cholecalciferol (vitamin D3) 25 mcg PO DAILY clotrimazole 1% 1 appl topical BID magnesium oxide 250 mg PO DAILY omeprazole 40 mg PO DAILY PRN vitamin B complex 1 tab PO DAILY Tobacco use date assessed: 04/17/22 HPI Pressure Headaches HPI Details 41-year-old lady here today complaining of intermittent episode of throbbing headache, which starts on the back of her head sometimes spreading to the sides and above her eyes. This has been ongoing now for the last several days. When taking ibuprofen and has also tried taking meloxicam both of which has not helped. Denies photophobia, no nausea, no vomiting, no lightheadedness no change in vision accompanying headache. [facility] Medical History (Updated 09/13/22 @ 11:25 by Arabella Oliveros MD) Chronic right shoulder pain GERD (gastroesophageal reflux disease) Labral tear of shoulder Left lateral epicondylitis Obesity (BMI 35.0-39.9 without comorbidity) JULIETH (obstructive sleep apnea) Osteoarthritis of right AC (acromioclavicular) joint Pelvic floor dysfunction PONV (postoperative nausea and vomiting) depression Right shoulder strain Right shoulder tendinitis Tendinosis of right shoulder Vitamin D deficiency Well woman exam with routine gynecological exam Surgical History (Updated 09/13/22 @ 11:25 by Arabella Oliveros MD) History of lumpectomy Family History Father Emphysema, unspecified CVD (cardiovascular disease) Mother HTN (hypertension) Diabetes mellitus Brother HTN (hypertension) Maternal Grandmother No problems noted. Maternal Grandfather History of CVA (cerebrovascular accident) Brother No problems noted. Sister No problems noted. Sister No problems noted. Son No problems noted. Daughter No problems noted. Maternal Aunt Lung cancer Social History Housing: House Alcohol intake: current Alcohol intake frequency: does not drink Patient Tobacco Use Status: Never used Tobacco e-Cigarette/Vaping Use: Never Used service: Yes Current occupational status: employed Cognitive needs: No Hearing needs: No Vision needs: No Female Reproductive History Menstrual Age of Menarche: 13 Questionnaire Thrive Questionnaire Date Thrive assessed: 04/04/21 AUDIT C Alcohol Use Questionnaire (AUDIT-C) 1. How often do you have a drink containing alcohol?: Never 3. How often do you have six or more drinks on one occasion?: Never Total Score: 0 JOAO-7 AMB Questionnaire JOAO-7 Date JOAO - 7 assessed: 04/04/21 Source: Developed by Drs. Shady Reynaga, Jennifer Mike, Anuel Abreu and colleagues, with an educational vadim from [employer]. Review of Systems Const Denies body aches, Denies fatigue, Denies fever(s) and Denies weakness Eyes Denies change in vision, Denies eye discharge and Denies itchy eyes ENT Denies dizziness, Denies nasal congestion, Denies nasal discharge and Denies sore throat Card Denies chest pain, Denies lightheadedness, Denies palpitations and Denies dyspnea Resp Denies chest congestion, Denies cough, Denies dyspnea and Denies wheezing GI Denies abdominal pain, Denies change in bowel habits and Denies heartburn Neuro Denies dizziness and Denies weakness Endo Denies fatigue, Denies polydipsia, Denies polyuria and Denies palpitations Aller/Immun Denies itchy eyes, Denies seasonal rhinorrhea and Denies wheezing Physical exam (Primary Care) Vital Signs: Last Vital Signs Pulse 59 04/17/22 12:27 BP 138/90 H 04/17/22 12:27 Pulse Ox 97 04/17/22 12:27 Oxygen Delivery Method Room Air 04/17/22 12:27 BMI result Body Mass Index 38.4 Tobacco/Smoking Status: Tobacco use Status Tobacco use date assessed 04/17/22 04/17/22 12:28 Patient Tobacco Use Status Never used Tobacco 04/17/22 12:23 e-Cigarette/Vaping Use Never Used 04/17/22 12:23 Thrive Assessment: Date of Thrive Assessment Date Thrive assessed 04/04/21 04/17/22 12:23 Const General: comfortable, no acute distress, awake and Physically active Nutritional Appearance: obese Orientation/consciousness: patient oriented x3 HENMT Head: Yes normocephalic and Yes atraumatic Ears: hearing grossly normal bilaterally, external ears normal, TM's normal bilaterally and EAC's normal General nose exam: Normal external nose present Face and sinus: Yes sinuses nontender and Yes face symmetric Mouth: Normal oral and palatal mucosa present, oropharynx normal and moist mucous membranes Eyes General: appearance normal, both eyes and all related structures Neck Neck: Yes normal visual inspection, Yes full ROM, Yes no lymphadenopathy and Yes supple Resp Auscultation: clear to auscultation bilaterally Cardio Rate: regular rate Rhythm: regular rhythm Heart sounds: S1 normal heart sound present and S2 normal heart sound present Skin General skin exam: no rashes or lesions noted Neuro General: patient oriented x3, gait normal, tone normal, moves all extremities, Normal light touch and pain sensation, no focal motor deficits, CN's II-XI intact bilaterally and normal sensation to monofilament Assessment and Plan Assessment & Plan (1) Vascular headache: Comment: ? Migraine headache, [facility], no relief with topiramate, advised to try Botox injections Code(s): G44.1 - Vascular headache, not elsewhere classified Plan: Will try on Fioricet, 1 capsule every 12 hours as needed for severe headache, if no improvement, advised to [facility] for [facility] Medications: New tqoppnorwz-rmascodcorgna-hvwt 50-300-40 mg (Fioricet) 1 cap PO Q12H PRN 10 caps 0RF headache omeprazole 20 mg PO DAILY PRN 30 caps 1RF heartburn Discontinued ibuprofen Discontinued Reason: Doctor's Order 800 mg PO Q8H 45 tabs 0RF meloxicam Discontinued Reason: Doctor's Order 15 mg PO DAILY 14 tabs 0RF Coding Level of Care Code Est Pt Level 3 (58821) Diagnoses Vascular headache G44.1
[2022-04-17 12:27] VITALS: BP 138/90; PULSE 59; O2SAT 97; BMI 38.4
== END 2022-04-17 14:17 | disposition home or self-care (01) ==
LOC: HO.HMGC 11:44
PROVIDERS: PCP Internal Medicine; Visit Provider Internal Medicine
DX: G44.1 Vascular headache, not elsewhere classified (principal)
CPT/HCPCS: 99213

== ENCOUNTER → 2022-04-18 13:21 | Outpatient (BNVA) | payer OTHER, SELFPAY | PROVIDERS: PCP Internal Medicine; Visit Provider Obstetrics & Gynecology | DX: N84.1 Polyp of cervix uteri (principal) | CPT/HCPCS: 99212 ==

== ENCOUNTER 2022-09-13 10:29 | Outpatient (AMB) | payer OTHER, SELFPAY ==
--- NOTE | 2022-09-13 10:43 | A.OFFPC_ITS ---
Vital Signs 09/13/22 10:44 Height 5 ft 7 in Weight 249 lb BMI 39.0 BP 138/90 H Blood Pressure Location Lt brachial Position Sitting Pulse 97 Pulse Source Pulse Oximeter Pulse Oximetry (%) 97 Oxygen Delivery Method Room Air Intake Visit Reasons: Follow up Intake Note: Pt is here today lingering cough Allergies No Known Allergies [No Known Allergies*] Allergy (Verified 09/13/22 11:02) Medication List - Last Reconciled 09/13/22 by Arabella Oliveros MD albuterol sulfate 90 mcg/actuation 1 inh inhalation QID PRN amlodipine 5 mg PO DAILY cholecalciferol (vitamin D3) 25 mcg PO DAILY clotrimazole 1% 1 appl topical BID magnesium oxide 250 mg PO DAILY omeprazole 40 mg PO DAILY PRN vitamin B complex 1 tab PO DAILY Tobacco use date assessed: 09/13/22 Dental Screening Dental Screen Date: 09/13/22 Did you have a dental visit in the last 12 months?: Yes Was dental information given to patient?: Patient has dentist HPI Follow up HPI Details 41-year-old lady here today complaining of recurrent episode of nonproductive cough accompanied by wheezing, worse when the weather is hot or with occasional moderate exertion. Has been using her albuterol inhaler which has afforded only temporary relief. [facility] Medical History (Updated 09/13/22 @ 11:25 by Arabella Oliveros MD) Chronic right shoulder pain GERD (gastroesophageal reflux disease) Labral tear of shoulder Left lateral epicondylitis Obesity (BMI 35.0-39.9 without comorbidity) JULIETH (obstructive sleep apnea) Osteoarthritis of right AC (acromioclavicular) joint Pelvic floor dysfunction PONV (postoperative nausea and vomiting) depression Right shoulder strain Right shoulder tendinitis Tendinosis of right shoulder Vitamin D deficiency Well woman exam with routine gynecological exam Surgical History (Updated 09/13/22 @ 11:25 by Arabella Oliveros MD) History of lumpectomy Family History Father Emphysema, unspecified CVD (cardiovascular disease) Mother HTN (hypertension) Diabetes mellitus Brother HTN (hypertension) Maternal Grandmother No problems noted. Maternal Grandfather History of CVA (cerebrovascular accident) Brother No problems noted. Sister No problems noted. Sister No problems noted. Son No problems noted. Daughter No problems noted. Maternal Aunt Lung cancer Social History Housing: House Alcohol intake: current Alcohol intake frequency: does not drink Patient Tobacco Use Status: Never used Tobacco e-Cigarette/Vaping Use: Never Used service: Yes Current occupational status: employed Cognitive needs: No Hearing needs: No Vision needs: No Female Reproductive History Menstrual Age of Menarche: 13 Questionnaire PHQ-9 Over the last 2 weeks, how often have you been bothered by any of the following problems? 1. Little interest or pleasure in doing things: not at all 2. Feeling down, depressed, or hopeless: not at all 3. Trouble falling or staying asleep, or sleeping too much: several days 4. Feeling tired or having little energy: several days 5. Poor appetite or overeating: several days 6. Feeling bad about yourself - or that you are a failure or have let yourself or your family down: not at all 7. Trouble concentrating on things, such as reading the newspaper or watching television: not at all 8. Moving or speaking so slowly that other people could have noticed. Or the opposite - being so fidgety or restless that you have been moving around a lot more than usual: not at all 9. Thoughts that you would be better off or of hurting yourself in some way: not at all Total score: 3 Depression Screening Interpretation: Negative Source: Developed by Drs. Shady Reynaga, Jennifer Mike, Anuel Abreu and colleagues, with an educational vadim from [employer]. Thrive Questionnaire Date Thrive assessed: 09/13/22 What is your living situation today?: I have a steady place to live Within the past 12 months, did the food you bought not last and you didn't have the money to get more?: Never true Within the past 12 months, did you worry whether your food would run out before you got money to buy more?: Never true Do you have trouble getting transportation to medical appointments?: No Do you have trouble paying your heating and electricity bill?: No Do you have trouble taking care of your child, family member or friend?: No Do you have trouble with day-to-day activities such as bathing, preparing meals, shopping, managing finances, etc.?: No Are you currently unemployed and looking for a job?: No Are you interested in more education?: No AUDIT C Alcohol Use Questionnaire (AUDIT-C) 1. How often do you have a drink containing alcohol?: Never Total Score: 0 JOAO-7 AMB Questionnaire JOAO-7 Date JOAO - 7 assessed: 04/04/21 Source: Developed by Drs. Shady Reynaga, Jennifer Mike, Anuel Abreu and colleagues, with an educational vadim from [employer]. Review of Systems Const All systems reviewed & are unremarkable except as noted in HPI and below Physical exam (Primary Care) Vital Signs: Last Vital Signs Pulse 97 09/13/22 10:44 BP 138/90 H 09/13/22 10:44 Pulse Ox 97 09/13/22 10:44 Oxygen Delivery Method Room Air 09/13/22 10:44 BMI result Body Mass Index 39.0 Tobacco/Smoking Status: Tobacco use Status Tobacco use date assessed 09/13/22 09/13/22 10:51 Patient Tobacco Use Status Never used Tobacco 09/13/22 10:51 e-Cigarette/Vaping Use Never Used 09/13/22 10:51 Depression Screening Interpretation: Negative Thrive Assessment: Date of Thrive Assessment Date Thrive assessed 04/04/21 09/13/22 10:51 Const General: comfortable, no acute distress and alert Nutritional Appearance: obese Orientation/consciousness: patient oriented x3 HENMT Ears: hearing grossly normal bilaterally and external ears normal General nose exam: Normal external nose present and No nasal discharge present Face and sinus: Yes sinuses nontender and Yes face symmetric Mouth: Normal oral and palatal mucosa present, oropharynx normal and moist mucous membranes Neck Neck: Yes full ROM, Yes no lymphadenopathy and Yes supple Resp Effort & Inspection: normal respiratory effort and able to speak in complete sentences Auscultation: clear to auscultation bilaterally GI Inspection: Yes obesity Palpation (GI): Soft to palpation, nontender, no guarding and no masses Neuro General: patient oriented x3 Assessment and Plan Assessment & Plan (1) Recurrent nonproductive cough: Code(s): R05.8 - Other specified cough Plan: Ordered PFT with methacholine challenge, to rule out asthma. In the meantime continue using albuterol inhaler as needed for episodes of cough with bronchospasm Orders: Orders PFT pulmonary function test Today R05.8 - Other specified cough RT pft w methacholine Today R05.8 - Other specified cough Coding Level of Care Code Est Pt Level 3 (23739) Diagnoses Recurrent nonproductive cough R05.8
[2022-09-13 10:44] VITALS: BP 138/90; PULSE 97; O2SAT 97; BMI 39.0
== END 2022-09-13 11:17 | disposition home or self-care (01) ==
PROVIDERS: PCP Internal Medicine; Visit Provider Internal Medicine
DX: R05.8 Other specified cough (principal)
CPT/HCPCS: 99213

== ENCOUNTER 2022-10-30 10:23 | Outpatient (REF) | payer OTHER, SELFPAY ==
--- NOTE | 2022-10-30 11:19 | PFT_ITS ---
INDICATION: Cough. SPIROMETRY: FEV to FVC of 68% post-bronchodilators with an FVC of 2.78 L, which is 68% predicted and FEV1 of 1.9 L, which is 67% predicted. No significant response to bronchodilator is noted. Maximum voluntary ventilation is 29% predicted. LUNG VOLUMES: Total lung capacity 65% predicted with an expiratory reserve volume of 13% predicted. DIFFUSION CAPACITY: DLCO 85% predicted. COMPARISONS: None. INTERPRETATION: There appears to be a moderate restrictive ventilatory defect although she did not have an obstruction during the pre-bronchodilator measurements suggesting a possibility of . There is a severe decrease in maximum voluntary ventilation secondary to deconditioning and also cannot rule out neuromuscular condition. Lung volumes also demonstrated restrictive ventilatory defect consistent with mild to moderate restrictive lung disease. In part, this could be secondary to the elevated BMI although neuromuscular conditions cannot be ruled out. Normal decreasing capacity. If asthma is in the differential, a methacholine challenge would be helpful in assessing for hyperactive airways disease. Clinical correlation warranted. MD SAUL Manuel/DASHAWN / [id number]
== END 2022-10-30 10:24 | disposition home or self-care (01) ==
LOC: HO.RESP 10:23
PROVIDERS: PCP Internal Medicine; Visit Provider Internal Medicine
DX: R05.8 Other specified cough (principal)
CPT/HCPCS: 94010; 94727; 94729

== ENCOUNTER → 2022-10-30 11:19 | Outpatient (BNV) | payer OTHER, SELFPAY | PROVIDERS: PCP Internal Medicine; Visit Provider Hospitalist | DX: R05.9 Cough, unspecified (principal); G47.33 Obstructive sleep apnea (adult) (pediatric) | CPT/HCPCS: 94060; 94727; 94729 ==

== ENCOUNTER 2022-10-31 11:29 | Outpatient (AMB) | payer OTHER, SELFPAY ==
[2022-10-31 12:21] VITALS: BP 128/88; PULSE 79; O2SAT 97; BMI 38.1
--- NOTE | 2022-10-31 12:21 | MHC.PC.OV ---
Vital Signs 10/31/22 12:21 Height 5 ft 7 in Weight 243 lb BMI 38.1 BP 128/88 Blood Pressure Location Lt brachial Position Sitting Pulse 79 Pulse Source Pulse Oximeter Pulse Oximetry (%) 97 Oxygen Delivery Method Room Air Intake Visit Reasons: discuss FMLA Intake Note: Pt is here today to discuss FMLA Allergies No Known Allergies [No Known Allergies*] Allergy (Verified 03/10/24 13:51) Medication List - Last Reconciled 10/31/22 by Arabella Oliveros MD albuterol sulfate 90 mcg/actuation 1 inh inhalation QID PRN amlodipine 5 mg PO DAILY bupropion HCl 75 mg PO BID cholecalciferol (vitamin D3) 25 mcg PO DAILY clotrimazole 1% 1 appl topical BID magnesium oxide 250 mg PO DAILY mometasone 200 mcg/actuation (Asmanex HFA) 2 puffs inhalation BID omeprazole 20 mg PO DAILY PRN vitamin B complex 1 tab PO DAILY Tobacco use date assessed: 10/31/22 Dental Screening Dental Screen Date: 10/31/22 Did you have a dental visit in the last 12 months?: Yes Did you have a dental problem in the last 6 months where you did not have access to dental care?: Yes Was dental information given to patient?: Patient has dentist HPI discuss FMLA HPI Details 41-year-old lady with chronic pain in her right shoulder joint, status post surgery earlier this year, here today requesting assistance in filling out her disability form form [facility]. right anterior shoulder pain 10/26/2020 , which she attributes to her job at the [employer]. She was doing repetitive heavy lifting, pushing and pulling of her upper extremities, right more than the left as she is right handed. She has not been able to go back to work as her right shoulder for has not returned back to normal. Unable to do lift anything heavier than pen 10 lb with her heart and and has limited range of motion of her right shoulder joint due to stiffness. She has had surgery in right shoulder at [facility] per patient, and prior to that has had several bouts of physical therapy which has afforded return to normal function in her right shoulder joint [facility] Medical History (Updated 05/06/23 @ 13:57 by Arabella Oliveros MD) Takotsubo cardiomyopathy Asthma PONV (postoperative nausea and vomiting) GERD (gastroesophageal reflux disease) JULIETH (obstructive sleep apnea) Tendinosis of right shoulder Osteoarthritis of right AC (acromioclavicular) joint Labral tear of shoulder Chronic right shoulder pain Right shoulder strain Well woman exam with routine gynecological exam Right shoulder tendinitis Left lateral epicondylitis Vitamin D deficiency Obesity (BMI 35.0-39.9 without comorbidity) Pelvic floor dysfunction depression Surgical History Hx of shoulder surgery History of lumpectomy Family History Father Emphysema, unspecified CVD (cardiovascular disease) Mother HTN (hypertension) Diabetes mellitus Brother HTN (hypertension) Maternal Grandmother No problems noted. Maternal Grandfather History of CVA (cerebrovascular accident) Brother No problems noted. Sister No problems noted. Sister No problems noted. Son No problems noted. Daughter No problems noted. Maternal Aunt Lung cancer Social History Housing: House Alcohol intake: current Alcohol intake frequency: does not drink Patient Tobacco Use Status: Never used Tobacco e-Cigarette/Vaping Use: Never Used service: Yes Current occupational status: employed Cognitive needs: No Hearing needs: No Vision needs: No Female Reproductive History Menstrual Age of Menarche: 13 Questionnaire PHQ-9 Over the last 2 weeks, how often have you been bothered by any of the following problems? Depression Screening Interpretation: Negative Source: Developed by Drs. Shady Reynaga, Anuel Garner and colleagues, with an educational vadim from [employer]. Thrive Questionnaire Date Thrive assessed: 09/13/22 AUDIT C Alcohol Use Questionnaire (AUDIT-C) 1. How often do you have a drink containing alcohol?: Never Total Score: 0 JOAO-7 AMB Questionnaire JOAO-7 Date JOAO - 7 assessed: 04/04/21 Source: Developed by Drs. Shady Reynaga, Anuel Garner and colleagues, with an educational vadim from [employer]. Review of Systems Const Denies fatigue, Denies fever(s) and Denies weakness Eyes Denies change in vision, Denies eye discharge and Denies itchy eyes ENT Denies dizziness, Denies nasal congestion, Denies nasal discharge and Denies sore throat Card Denies chest pain, Denies lightheadedness, Denies palpitations and Denies dyspnea Resp Denies chest congestion, Denies cough, Denies dyspnea and Denies wheezing GI Denies abdominal pain, Denies change in bowel habits and Denies heartburn Musc Reports no additional complaints and Reports as per HPI Skin/Breast Denies lesions and Denies rash Neuro Denies dizziness and Denies weakness Endo Denies fatigue, Denies polydipsia, Denies polyuria and Denies palpitations Helder/Lymph Reports no additional complaints Aller/Immun Denies itchy eyes, Denies seasonal rhinorrhea and Denies wheezing Physical exam (Primary Care) Vital Signs: Last Vital Signs Pulse 79 10/31/22 12:21 BP 128/88 10/31/22 12:21 Pulse Ox 97 10/31/22 12:21 Oxygen Delivery Method Room Air 10/31/22 12:21 BMI result Body Mass Index 38.1 Tobacco/Smoking Status: Tobacco use Status Tobacco use date assessed 10/31/22 10/31/22 12:29 Patient Tobacco Use Status Never used Tobacco 10/31/22 12:29 e-Cigarette/Vaping Use Never Used 10/31/22 12:29 Depression Screening Interpretation: Negative Thrive Assessment: Date of Thrive Assessment Date Thrive assessed 09/13/22 10/31/22 12:29 Const General: comfortable, no acute distress and alert Nutritional Appearance: obese Orientation/consciousness: patient oriented x3 HENMT Ears: hearing grossly normal bilaterally and external ears normal General nose exam: Normal external nose present Face and sinus: Yes face symmetric Mouth: Normal oral and palatal mucosa present, oropharynx normal and moist mucous membranes Neck Neck: Yes full ROM, Yes no lymphadenopathy and Yes supple Resp Effort & Inspection: normal respiratory effort and able to speak in complete sentences Auscultation: clear to auscultation bilaterally GI Inspection: Yes obesity Palpation (GI): Soft to palpation, nontender, no guarding and no masses Skin General skin exam: no rashes or lesions noted Neuro General: patient oriented x3 Extrem Other: Decreased range of motion of right shoulder joint specially in abduction, pain elicited on abducting more than 90 degrees., no gross bone deformity or joint swelling seen in affected joint. Coding Level of Care Code Est Pt Level 3 (82864) Diagnoses Tendinosis of right shoulder M67.813 Chronic right shoulder pain M25.511; G89.29
== END 2022-10-31 14:32 | disposition home or self-care (01) ==
PROVIDERS: PCP Internal Medicine; Visit Provider Internal Medicine
DX: M67.813 Other specified disorders of tendon, right shoulder (principal); M25.511 Pain in right shoulder; G89.29 Other chronic pain
CPT/HCPCS: 99499

== ENCOUNTER 2022-12-13 08:51 | Outpatient (REF) | payer OTHER, SELFPAY ==
[2022-12-13 08:04] VITALS: PULSE 78; RESP 16; O2SAT 95
[2022-12-13 09:00] VITALS: O2SAT 98
--- NOTE | 2022-12-14 16:31 | PFT_ITS ---
This is a methacholine challenge pulmonary report. INDICATIONS: Evaluation of hyperreactive airways and diagnosis of asthma. FINDINGS: The patient received the methacholine protocol receiving incremental doses of methacholine. There was a 21% decrease in the FEV1 after the first dose. At that point, the patient did have scratchy throat and also coughing. The patient then received albuterol via nebulizer and the FEV1 returned back to baseline. INTERPRETATION: This is a positive methacholine challenge as there was a 20% change in the FEV1 after the 16 mg dose of methacholine. The patient has evidence of hyperreactive airways and likely diagnosis of asthma. Clinical correlation warranted. MD SAUL Manuel/DASHAWN / [id number] MTDD
== END 2022-12-13 08:52 | disposition home or self-care (01) ==
LOC: HO.RESP 08:51
PROVIDERS: PCP Internal Medicine; Visit Provider Nurse Practitioner Family
DX: R06.00 Dyspnea, unspecified (principal); R05.8 Other specified cough
CPT/HCPCS: 94640

== ENCOUNTER 2023-03-22 09:28 | Outpatient (AMB) | payer OTHER, SELFPAY ==
[2023-03-22 09:58] VITALS: BP 124/82; BMI 37.7
--- NOTE | 2023-03-22 09:58 | A.OFFVIS_ITS ---
Intake Vital Signs 03/22/23 09:58 Height 5 ft 7 in Weight 241 lb BMI 37.7 BP 124/82 Intake Visit Reasons: Annual/co testing Systems Development Manager Required: No Information Interpreted: non-clinical & clinical Clinical Psychologist Licensed: Clinical Psychologist Licensed Present (Thelma) Allergies No Known Allergies [No Known Allergies*] Allergy (Verified 03/22/23 10:02) Is last menstrual period known: Yes Last menstrual period: 03/20/23 Post menopausal: No HPI HPI Comments History of Present Illness Details Presenting for annual exam. No complaints. Last Pap/HPV was negative in 11/10 Last Mammogram was in 11/10, the patient had a biopsy showing benign pathology [facility] Medical History Asthma PONV (postoperative nausea and vomiting) GERD (gastroesophageal reflux disease) JULIETH (obstructive sleep apnea) Tendinosis of right shoulder Osteoarthritis of right AC (acromioclavicular) joint Labral tear of shoulder Chronic right shoulder pain Right shoulder strain Well woman exam with routine gynecological exam Right shoulder tendinitis Left lateral epicondylitis Vitamin D deficiency Obesity (BMI 35.0-39.9 without comorbidity) Pelvic floor dysfunction depression Surgical History Hx of shoulder surgery History of lumpectomy Family History Father Emphysema, unspecified CVD (cardiovascular disease) Mother HTN (hypertension) Diabetes mellitus Brother HTN (hypertension) Maternal Grandmother No problems noted. Maternal Grandfather History of CVA (cerebrovascular accident) Brother No problems noted. Sister No problems noted. Sister No problems noted. Son No problems noted. Daughter No problems noted. Maternal Aunt Lung cancer Social History Housing: House Alcohol intake: current Alcohol intake frequency: does not drink Patient Tobacco Use Status: Never used Tobacco e-Cigarette/Vaping Use: Never Used service: Yes Current occupational status: employed Cognitive needs: No Hearing needs: No Vision needs: No Female Reproductive History Menstrual Age of Menarche: 13 Duration of menses: 3-5 days Date of last menstrual period: 03/20/23 control method: none Total pregnancies: 2 Full term: 2 Number of Living Children: 2 Date of last pap smear: 11/08/21 (negative) Date of Mammogram: 12/09/21 Review of Systems Const All systems reviewed & are unremarkable except as noted in HPI and below Card Reports as per HPI Resp Reports as per HPI GI Reports as per HPI and Reports no additional complaints Reports as per HPI Physical Exam Vital Signs: Last Vital Signs BP 124/82 03/22/23 09:58 BMI result Body Mass Index 37.7 Const General: cooperative, healthy appearing and comfortable Chest Chest palpation & inspection: normal inspection of the chest and normal palpation of entire chest wall Breast/axilla inspection: normal inspection of the breasts and normal inspection of the axillae Breast/axilla palpation: normal palpation of the breasts, normal palpation of the axillae and no axillary lymphadenopathy Resp Effort & Inspection: normal respiratory effort Auscultation: clear to auscultation bilaterally Percussion: percussion normal Cardio Palpation: normal PMI Rate: regular rate Rhythm: regular rhythm Heart sounds: no murmurs and no rubs Peripheral pulses: Peripheral pulses 2+ throughout GI Inspection: Yes normal to inspection Palpation (GI): Soft to palpation, nontender, no guarding, not rigid and No hepatosplenomegaly present Percussion: Yes normal to percussion Auscultation: normal bowel sounds Rectal Exam - Female: deferred General: Yes bladder normal to palpation External Female Exam: No lesion Speculum Exam - Vagina: normal appearance of the vagina, normal palpation, normal vaginal discharge and not erythematous Speculum Exam - Cervix: normal appearance of the cervix and normal palpation Bimanual exam- vagina & uterus: normal bimanual exam, normal palpation, uterine size normal, bladder normal to palpation, consistency normal and normal pa lpation Bimanual Exam- Adnexa, other: normal adnexae, no masses and no tenderness Assessment & Plan Assessment & Plan (1) Well woman exam with routine gynecological exam: Code(s): Z01.419 - Encounter for gynecological examination (general) (routine) without abnormal findings Plan: Cotesting not indicated this year. Mammogram ordered. Counseled the patient about the recommended dietary allowance of 1000 mg of Calcium & 600 IU of vitamin D. The patient was instructed to perform monthly self-breast exams and to schedule an annual exam in a year; All questions answered and the patient verbalized understanding. Instructed the patient to schedule annual exam in a year Orders: Orders MM tomosynthesis screening BI Today Z12.31 - Encounter for screening mammogram for malignant neoplasm of breast Coding Level of Care Code Est Pt Prev Care 40-64y(36035) Diagnoses Well woman exam with routine gynecological exam Z01.419
== END 2023-03-22 10:30 | disposition home or self-care (01) ==
LOC: HO.HWS 09:28
PROVIDERS: PCP Internal Medicine; Visit Provider Obstetrics & Gynecology
DX: Z01.419 Encounter for gynecological examination (general) (routine) without abnormal findings (principal)
CPT/HCPCS: 99396

== ENCOUNTER → 2023-03-22 09:28 | Outpatient (BNVA) | payer OTHER, SELFPAY | PROVIDERS: PCP Internal Medicine; Visit Provider Obstetrics & Gynecology ==

== ENCOUNTER 2023-05-25 13:05 | Outpatient (REF) | payer OTHER, SELFPAY ==
--- NOTE | ~2023-05-25 | MM_ITS ---
EXAMINATION: MM SCREENING DIGITAL BREAST TOMOSYNTHESIS, BILATERAL CLINICAL INFORMATION: Screening. Asymptomatic. COMPARISON: Mammography: This study is compared with prior exams dating back to 2021. TECHNIQUE: Digital breast tomosynthesis is performed in both the craniocaudal and mediolateral oblique views along with computer-aided detection (CAD). Synthesized 2D images are generated from the tomosynthesis. FINDINGS: The breasts are heterogeneously dense, which may obscure small masses (ACR BI-RADS breast composition Category c). There are no significant masses, abnormal calcifications, or other abnormalities. BI-RADS 2 There are minor architectural changes of the lateral aspect of the left breast from prior surgery for benign disease. MM/MM tomosynthesis screening BI IMPRESSION: No mammographic evidence of malignancy. ASSESSMENT: BI-RADS BI-RADS 2 - Benign Findings RECOMMENDATION: Routine annual mammography screening. 1 year F/U This examination should not preclude the clinical evaluation of a suspicious palpable abnormality. This patient's information was entered into a reminder system with a target due date for their next mammogram.
== END 2023-05-25 13:06 | disposition home or self-care (01) ==
LOC: HO.MAMMO 13:05
PROVIDERS: PCP Internal Medicine; Visit Provider Obstetrics & Gynecology
DX: Z12.31 Encounter for screening mammogram for malignant neoplasm of breast (principal)
CPT/HCPCS: 77063; 77067

== ENCOUNTER → 2023-05-25 13:15 | Outpatient (BNV) | payer OTHER, SELFPAY | PROVIDERS: PCP Internal Medicine; Visit Provider Radiology Diagnostic Radiology | DX: Z12.31 Encounter for screening mammogram for malignant neoplasm of breast (principal) | CPT/HCPCS: 77063; 77067 ==

== ENCOUNTER 2024-03-25 09:07 | Outpatient (AMB) | payer OTHER, SELFPAY ==
--- NOTE | 2024-03-25 09:17 | MHC.OFFVIS ---
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 No complaints. Last Pap/HPV was negative in 11/10 Last Mammogram was BI-RADS 2 in 06/12 [facility] Medical History Takotsubo cardiomyopathy Asthma PONV (postoperative nausea and vomiting) GERD (gastroesophageal reflux disease) JULIETH (obstructive sleep apnea) Tendinosis of right shoulder Osteoarthritis of right AC (acromioclavicular) joint Labral tear of shoulder Chronic right shoulder pain Right shoulder strain Well woman exam with routine gynecological exam Right shoulder tendinitis Left lateral epicondylitis Vitamin D deficiency Obesity (BMI 35.0-39.9 without comorbidity) Pelvic floor dysfunction depression Surgical History Hx of shoulder surgery History of lumpectomy Family History Father Emphysema, unspecified CVD (cardiovascular disease) Mother HTN (hypertension) Diabetes mellitus Brother HTN (hypertension) Maternal Grandmother No problems noted. Maternal Grandfather History of CVA (cerebrovascular accident) Brother No problems noted. Sister No problems noted. Sister No problems noted. Son No problems noted. Daughter No problems noted. Maternal Aunt Lung cancer Social History Housing: House Alcohol intake: current Alcohol intake frequency: does not drink Patient Tobacco Use Status: Never used Tobacco e-Cigarette/Vaping Use: Never Used service: Yes Current occupational status: employed Cognitive needs: No Hearing needs: No Vision needs: No Female Reproductive History Menstrual Age of Menarche: 13 Duration of menses: 3-5 days Date of last menstrual period: 02/22/24 Total pregnancies: 2 Full term: 2 Date of last pap smear: 11/08/21 (negative hpv, negative pap smear) Date of Mammogram: 05/25/23 (bi rad 2) Review of Systems Const All systems reviewed & are unremarkable except as noted in HPI and below Card Reports as per HPI Resp Reports as per HPI GI Reports as per HPI and Reports no additional complaints Reports as per HPI Physical Exam Vital Signs: Last Vital Signs BP 124/80 03/25/24 09:21 BMI result Body Mass Index 38.4 Const General: cooperative, healthy appearing and comfortable Chest Chest palpation & inspection: normal inspection of the chest and normal palpation of entire chest wall Breast/axilla inspection: normal inspection of the breasts and normal inspection of the axillae Breast/axilla palpation: normal palpation of the breasts, normal palpation of the axillae and no axillary lymphadenopathy Resp Effort & Inspection: normal respiratory effort Auscultation: clear to auscultation bilaterally Percussion: percussion normal Cardio Palpation: normal PMI Rate: regular rate Rhythm: regular rhythm Heart sounds: no murmurs and no rubs Peripheral pulses: Peripheral pulses 2+ throughout GI Inspection: Yes normal to inspection Palpation (GI): Soft to palpation, nontender, no guarding, not rigid and No hepatosplenomegaly present Percussion: Yes normal to percussion Auscultation: normal bowel sounds Rectal Exam - Female: deferred General: Yes bladder normal to palpation External Female Exam: No lesion Speculum Exam - Vagina: normal appearance of the vagina, normal palpation, normal vaginal discharge and not erythematous Speculum Exam - Cervix: normal appearance of the cervix and normal palpation Bimanual exam- vagina & uterus: normal bimanual exam, normal palpation, uterine size normal, bladder normal to palpation, consistency normal and normal palpation Bimanual Exam- Adnexa, other: normal adnexae, no masses and no tenderness Assessment & Plan Assessment & Plan (1) Well woman exam: Code(s): Z01.419 - Encounter for gynecological examination (general) (routine) without abnormal findings Category: Medical Plan: Cotesting not indicated this year. Mammogram ordered for 06/13. Counseled the patient about the recommended dietary allowance of 1000 mg of Calcium & 600 IU of vitamin D. The patient was instructed to perform monthly self-breast exams and to schedule an annual exam in a year; All questions answered and the patient verbalized understanding. Instructed the patient to schedule annual exam in a year Orders: Orders MM tomosynthesis screening BI Today Z12.31 - Encounter for screening mammogram for malignant neoplasm of breast Coding Level of Care Code Est Pt Prev Care 40-64y(49634) Diagnoses Well woman exam Z01.419
[2024-03-25 09:21] VITALS: BP 124/80; BMI 38.4
--- OUTSIDE RECORDS SUMMARY | 2024-03-25 09:35 | XMS_ITS | Encounter Summary ---
Author Organization [facility] Address [phone] Critical [place] [address] Care Team Providers Care Feed Adviser Name Role Phone Arabella Oliveros MD Primary Care Provider [phone]- [phone] Reason for Referral * Physical Therapy (Routine) - Closed Specialty Diagnoses / Procedures Referred By Tim aguirre Referred To Contact Physical Therapy Diagnoses Encounter for rehabilitation System, Provider Not In, [facility] [address] [address] [facility] [address] [place] [address] Referral ID Status Reason Start Date Expiration Date Visits Re quested Visits Authorized [id number] Closed 12/12/2017 12/12/2018 9 9 Encounter Details Date Type Department Care Team (Latest Contact Info) Description 10/29/2017 Transcribe Orders [facility] [address] [place] [address] Katelynn Finley, TRANSPLANT REGISTERED NURSE [address] [place] [id number] [email or web address] Encounter for rehabilitation (Primary Dx) Social History Tobacco Use Types Packs/Day Years Used Date Smoking Tobacco: Never Assessed Sex and Gender Information Value Date Recorded Sex Assigned at Female 04/04/2022 10:27 AM EST Gender Identity Female 04/04/2022 10:14 AM EST Sexual Orientation Straight 04/04/2022 10 :27 AM EST documented as of this encounter Plan of Treatment Scheduled Referrals Name Type Priority Associated Diagnoses Orde r Schedule Ambulatory referral to [facility] Physical Therapy Outpatient Referral Routine Encounter for rehabilitation Ordered: 10/29/2017 documented as of this encounter Visit Diagnoses Diagnosis Encounter for rehabilitation- Primary documented in this encounter Care Teams Feed Adviser Relationship Specialty Start Date End Date Arabella Oliveros MD [facility] [place] [address] PCP - General Internal Medicine 10/29/17 documented as of this encounter Additional Source Comments The information contained in this document represents components of the legal health record. It is not the complete legal health record.[facility]
--- OUTSIDE RECORDS SUMMARY | 2024-03-25 09:35 | XMS_ITS | Clinical Summary ---
Author Organization [facility] Address [phone] [facility] [place] [address] Care Team Providers Care Ux Developer Name Role Phone Arabella Oliveros MD Primary Care Provider [phone]- [phone] Allergies No known active allergies Medications No known medications Active Problems No known active problems Social History Tobacco Use Types Packs/Day Years Used Date Smoking Tobacco: Never Assessed Education Answer Date Recorded Are you interested in more education? Not on parveen e 06/16/2022 Are you concerned about learning? Not on file 06/16/2022 No 06/16/2022 No 06/16/2022 Digital Access Answer Date Recorded No 07/18/2022 No 07/18/2022 No 07/18/2022 Reliable internet access at home? Not on file 07/18/2022 Device with a working camera? Not on file Sex and Gender Information Value Date Recorded Sex Assigned at Female 04/04/2022 10:27 AM EST Gender Identity Female 04/04/2022 10:14 AM EST Sexual Orientation Straight 04/04/2022 10 :27 AM EST Plan of Treatment Health Maintenance Due Date Last Done Comments Adult Td,Tdap Booster 1981 DEPRESSION SCREENING 1993 SMOKING Hx and SMOKELESS TOB ACCO SCREENING 1994 HEPATITIS B SCREENING 11/07/1999 HEPATITIS C SCREENING 11/07/1999 HIV ONE-TIME SCREENING (18-6 5 YEARS) 11/07/1999 HEPATITIS B VACCINES (1 of 3 - 19+ 3-dose series) 2000 PAP SMEAR 2002 MAMMOGRAM 2021 INFLUENZA VACCINE (#1) 2023 COVID-19 VACCINE ( - 2023-2 5 season) 2023 HEPATITIS A VACCINES Aged Out No long er eligible based on patient's age to complete this topic HIB VACCINES Aged Out No longer eligi ble based on patient's age to complete this topic MENINGOCOCCAL VACCINES (ACWY) Aged Out No longer eligible based on patient's age to complete this topic PNEUMOCOCCAL VACCINES (0-49 years) Aged Out No longer eligible based on patient's age to complete this topic Medical Devices Not on file Marek, Fe Kaylie Personal/Family Self [address] [place] [id number] Rosita Jara Personal/Family Self 1980 [address] [place] [address] Rosita Jara Personal/Family Self 1980 [address] [place] [address] Rosita Jara Workers Comp Self 1980 [address] [place], [place] Care Teams Ux Developer Relationship Specialty Start Date End Date Arabella Oliveros MD [facility] [place] [address] PCP - General Internal Medicine 10/29/17 Additional Source Comments The information contained in this document represents components of the legal health record. It is not the complete legal health record.[facility]
== END 2024-03-25 11:11 | disposition home or self-care (01) ==
PROVIDERS: PCP Internal Medicine; Visit Provider Obstetrics & Gynecology
DX: Z01.419 Encounter for gynecological examination (general) (routine) without abnormal findings (principal)
CPT/HCPCS: 99396; 99459

== ENCOUNTER → 2024-03-25 09:07 | Outpatient (BNVA) | payer OTHER, SELFPAY | PROVIDERS: PCP Internal Medicine; Visit Provider Obstetrics & Gynecology | DX: Z01.419 Encounter for gynecological examination (general) (routine) without abnormal findings (principal) | CPT/HCPCS: 99212; 99459 ==

== ENCOUNTER 2024-05-27 11:36 | Outpatient (REF) | payer OTHER, SELFPAY ==
--- OUTSIDE RECORDS SUMMARY | 2024-05-27 14:15 | XMS_ITS | Clinical Summary ---
Author Organization [facility] Address [address] [place] [address] Phone Care Team Providers Care Face Boss Name Role Phone Arabella Oliveros MD Primary Care Provider [phone]- [phone] Allergies No known active allergies Medications No [...] 2021 INFLUENZA VACCINE (#1) 2023 COVID-19 VACCINE (1 - 2023-2 5 season) 2023 HEPATITIS A [...] file Marek, Fe Kaylie Personal/Family Self [address] [place] [id number] Rosita Jara Personal/Family Self 1980 [address] [facility] [place] Rosita Jara Personal/Family Self 1980 [address] [place], [place] Rosita Jara Workers Comp Self [address] [place] [address] Care Teams Face Boss Relationship Specialty Start Date End Date Arabella Oliveros MD [facility] [place] [address] PCP - General Internal Medicine 10/29/17 Additional Source Comments The information contained in this document represents components of the legal health record. It is not the complete legal health record.[facility]
--- OUTSIDE RECORDS SUMMARY | 2024-05-27 14:15 | XMS_ITS | Data Portability ---
Author Organization [facility], [facility] Address [address] [place] [address] Care Team Providers Care Law Firm Receptionist Name Role Phone ДМИТРИЙ BLANCO Primary Care Provider [phone] BRADEN RICH Material Preparation Worker [phone] Assessment No assessment recorded. Plan of Treatment Reminders Order Date Submit Date Provider Last Modified By Organization Details Last Modified Time Details Appointments None record ed. Lab None record ed. Referral None record ed. Procedures None record ed. Surgeries None record ed. Imaging None record ed. Medication Orders None record ed. Patient TargetsNo targets recorded. Patient InstructionsNo instructions recorded. Reason for Referral None Reported. Medical Equipment None Reported. Allergies Allergen ID Allergen Name Allergen Category Reaction Reaction Severity Criticality Documentation Date Start Date Code Code System Note Provider Name and Address Organization Details Recorded Time [id number] albuterol medicatio n Not available Not available Not available 06/28/2023 435 RxNorm ALICIA IVAN [facility] 4 14:04:47 Medications Name Sig Start Date Stop Date Status Note LastModified by Organization Details LastModified Time amoxicillin 500 mg capsule 04/10 completed Not Available Not Available Not Available atorvastati n 40 mg tablet TAKE 1 TABLET BY MOUTH EVERY DAY active Not Available Not Available No t Available cetirizine 10 mg tablet TAKE 1 TABLET BY MOUTH EVERY DAY 04/10 completed Not Available Not Available Not Available azithromyci n 250 mg tablet TAKE 2 TABLETS BY MOUTH TODAY, THEN TAKE 1 TABLET DAILY FOR 4 DAYS 04/10 completed Not Available Not Available Not Available benzonatate 200 mg capsule TAKE 1 CAPSULE BY MOUTH THREE TIMES A DAY NEEDED FOR COUGH 06/27 completed Not Available Not Available Not Available hydrocodone 5 mg-acetamin ophen 325 mg tablet 04/10 completed Not Available Not Available Not Available prednisone 20 mg tablet TAKE 2 TABLETS BY MOUTH EVERY DAY FOR 5 DAYS, NEEDED FOR EXACERBAT ION active Not Available Not Available No t Available famotidine 20 mg tablet active Not Available Not Available Not Available bupropion HCl 75 mg tablet 05/07 completed Not Available Not Available Not Available omeprazole 20 mg capsule,del ayed release active Not Available Not Available Not Available aspirin 81 mg chewable tablet TAKE 1 TABLET BY MOUTH EVERY DAY 04/10 completed Not Available Not Available Not Available montelukast 10 mg tablet TAKE 1 TABLET BY MOUTH EVERY DAY IN THE EVENING active Not Available Not Available No t Available mirtazapine 15 mg tablet 05/07 completed Not Available Not Available Not Available metoprolol succinate ER 25 mg tablet,exte nded release 24 hr TAKE 1 TABLET BY MOUTH EVERY DAY active Not Available Not Available No t Available methylpredn isolone 4 mg tablets in a dose pack TAKE 6 TABLETS ON DAY 1 DIRECTED ON PACKAGE AND DECREASE BY 1 TAB EACH DAY FOR A TOTAL OF 6 DAYS 05/07 completed Not Available Not Available Not Available albuterol sulfate HFA 90 mcg/actuati on aerosol inhaler 06/27 completed Not Available Not Available Not Available fluticasone propionate 50 mcg/actuati on nasal spray,suspe nsion active Not Available Not Available Not Available doxycycline hyclate 100 mg tablet 04/10 completed Not Available Not Available Not Available ipratropium bromide 0.02 % solution for inhalation active Not Available Not Available N ot Available naproxen 500 mg tablet TAKE 1 TABLET BY MOUTH TWICE A DAY WITH FOOD 05/07 completed Not Available Not Available Not Available amoxicillin 875 mg-potassiu m clavulanate 125 mg tablet 05/07 completed Not Available Not Available Not Available oxycodone 5 mg tablet TAKE 1-2 TABLETS EVERY 4 HOURS NEEDED FOR PAIN DO NOT DRIVE WHILE TAKING THIS MEDICATIO N 05/07 completed Not Available Not Available Not Available oxycodone HCl-oxycodo ne-ASA as directed 1-2 TABLETS EVERY [address] WHILE TAKING THIS MEDICATIO N 05/07 completed Statu s: 'Curr ent'; Not Available Not Available Not Available Entresto 49 mg-51 mg tablet 05/07 completed Not Available Not Available Not Available Entresto 24 mg-26 mg tablet TAKE 1 TABLET BY MOUTH TWICE A DAY active Not Available Not Available No t Available ubrogepant 100 mg tablet Take by oral route. active Not Available Not Available No t Available Vitals Date Recorded Body height Body mass index (BMI) Body weight Provider Name and Address Organization Details Last Updated DateTime 05/08/2023 170.18 cm 37.3 kg/m2 139402.98 g ANTHONY ROSS [facility] 05/08/2023 14:39:01 Date Recorded Body height Body mass index (BMI) Body weight Provider Name and Address Organization Details Last Updated DateTime 06/28/2023 170.18 cm 37.3 kg/m2 175705.98 g ALICIA IVAN [facility] 06/28/2023 14:04:26 Date Recorded Body height Body mass index (BMI) Body weight Provider Name and Address Organization Details Last Updated DateTime 04/10/2024 170.18 cm 37.3 kg/m2 309081.98 g Sangeeta Torres [facility] 04/10/2024 11:07:51 Social History None recorded. Functional Status None recorded. Mental Status None recorded. Family History Nothing Reported. Medical History Condition Response Allergies/Hayfever N Coronary Artery Disease N Breathing or lung disorders N Anxiety/Depression N Emphysema N Nerve Disorders N Thyroid Problems N COPD N Pacemaker N Kidney/Bladder Problems N Anemia N Vascular Disease N Heart Trouble Y Gastrointestinal Disease N Heart Attack (NM) N Cholesterol N Diabetes N Autoimmune disease N Bleeding Disorder N Orthotics N Arthritis N Seizures/Epilepsy N Blood Clot N AIDS/HIV N Congestive Heart Failure (CHF) N Acid Reflux (GERD) N Cancer N Stroke N Asthma Y Circulation Problems N Peripheral Vascular Disease N Sleep Apnea N Hepatitis N Heart Disease N Rheumatoid Arthritis N Arrhythmia N Pulmonary Embolism N Headaches N Fibromyalgia N Hypertension Y Osteoporosis N Gynecological HistoryNo gynecological history recorded. Obstetrics History GPAL:G 0 P 0 0 0 0 Past Encounters Encounter ID Performer Location Encounter Start Date Encounter Closed Date Diagnosis/Indication Diagnosis SNOMED-CT Code Diagnosis ICD10 Code Diagnosis Note [id number] [facility] [address] [place] [address] 05/08/2023 14:08:37 05/08/2023 16:19:24 Impingement syndrome of right shoulder region 9954569336 49633 M75.41 Anterior t o posterior tear of superior glenoid labrum of right shoulder 0186921015 2889560 S43.431D [id number] Benjamin Collazo PA-C [facility] [address] [place] [address] 06/28/2023 13:50:52 07/24/2023 07:42:43 Anterior to posterior tear of superior glenoid labrum of right shoulder 1750660404 8446144 S43.431D [id number] [facility] [address] [place] [address] 04/10/2024 11:01:42 04/18/2024 10:54:08 Impingement syndrome of right shoulder region 8409311215 09573 M75.41 Health Concerns Section Related Observation LastModified by Organization Detai ls LastModified Time None Recorded Concern Status LastModified by Organization Details LastModified Time None Recorded Advance Directives Directive None Recorded Payers Encounter Date Sequence Insurance Name Policy Number Policy Torres Covered Member ID Torres Member ID Guarantor Name 05/08/2023 NESSA Jara 04/10/2024 NESSA Jara Notes Date Note Type Note Provider Name and Address Organization Details Recorded Time 05/08/2023 text/html .I am seeing the patient today under the supervision of Dr. Daniels who was available but who did not see the patient. Ms. Jara returns in follow-up regarding the right shoulder. Now 10 months from right shoulder SADDCE and SLAP repair. she reports having performed 3 months of work hardening and still feels she is not quite ready to return to full capacity. She still has some discomfort with repetitive reaching or use. Past family, medical, social history and review of systems has been reviewed, updated and signed by me and is located in the patient? s chart. Examination: just shy of full arc of motion. Slightly restricted terminal forward flexion at 175. Remaining arc is comfortable. No crepitus. Negative impingement arc or impingement signs. Nontender biceps. Negative instability. No tenderness over the AC joint. Rotator cuff strength testing throughout was 5/5 with internal and external rotation resistance, 5-/5 scaptation resistance. Impression: 10 months status post right shoulder SLAP repair and associated SADDCE Plan: We discussed that at this time, now 10 months from surgery, she has exceeded maximum medical improvement. She has had 3 months of work hardening, and should be returning to relatively normal function and use of the shoulder both in everyday living and at work. A work note was provided giving some restrictions such as 20 pounds to waist in 10 pounds overhead. Otherwise may resume normal work. At this time, she is cleared to resume work and gradually to full and normal duty. Benjamin Collazo PA-C [address] [facility] [address], [place], [address], [facility] 05/08/2023 15:35:56 06/28/2023 text/html .I am seeing the patient today under the supervision of Dr. Lagos who was available but who did not see the patient.Ms. Jara returns in follow-up regarding the right shoulder. Now 1 year from right shoulder SADDCE and SLAP repair. she reports having performed nearly 4-1/2 months of work hardening and still feels she is not quite ready to return to full capacity. She still has some discomfort with repetitive reaching or use, or with direct pressure on the shoulder. We have discussed at length previously that she has most likely reached maximum medical improvement. Continued time away from work or her inability to return to work at full duty status is going to require a functional capacity exam and or a disability rating.Past family, medical, social history and review of systems has been reviewed, updated and signed by me and is located in the patient? s chart.Examination : just shy of full arc of motion. Slightly restricted terminal forward flexion at 175. Remaining arc is comfortable. No crepitus. Negative impingement arc or impingement signs. Nontender biceps. Negative instability. No tenderness over the AC joint. Rotator cuff strength testing throughout was 5/5 with internal and external rotation resistance, 5-/5 scaptation resistance.Impress ion: 12 months status post right shoulder SLAP repair and associated SADDCEPlan: Once again, we discussed that at this time, now 12 months from surgery, she has exceeded maximum medical improvement. A work note was provided giving some restrictions such as 20 pounds to waist in 10 pounds overhead. This note and its restrictions are only good until she completes the remaining 3 weeks of her work hardening program. Otherwise may resume normal work. At this time, she is cleared to resume work and gradually to full and normal duty. If she is unable to return to work full duty, then this will most likely require a formal functional capacity exam, independent medical examination, and/or disability rating. Benjamin Collazo PA-C [address], [place], [address], [facility] 06/28/2023 14:32:11 04/10/2024 text/html I am seeing the patient today under the supervision of Dr. Lezama who was available but who did not see the patient.Ms. Jara is seen today for clearance to return to work full duty. She is status post right shoulder SADDCE and SLAP repair dated 07/07/2022. She has had an extended and protracted course of care. Last seen in June 2023 and at that time was cleared to resume work. However, there was some mixup. She returns today requesting a work note.Past family, medical, social history and review of systems has been reviewed, updated and signed by me and is located in the patient? s chart.Examination : Comfortable full range of motion. The right shoulder. Some mild discomfort reaching from all points. 5/5 deltoid and rotator cuff function. No evidence of instability. 2+ pulsesImpression: Nearly 2 years status post right shoulder SADDCE and SLAP repairPlan: At this time, she is cleared with a full duty note to resume normal work capacity. No follow-up required. Benjamin Collazo PA-C [address], [place], [address], [facility] 04/10/2024 11:39:57 OBGyn Episode No OBEpisode recorded.
--- OUTSIDE RECORDS SUMMARY | 2024-05-27 14:16 | XMS_ITS | Encounter Summary ---
Author Organization [facility] Address [address] [place] [address] Phone Care Team Providers Care Cloth Trimmer Hand Name Role Phone Arabella Oliveros MD Primary Care Provider [phone]- [phone] Reason for Referral * Physical Therapy (Routine) - Closed Specialty Diagnoses / Procedures Referred By Tim aguirre Referred To Contact Physical Therapy Diagnoses Encounter for rehabilitation System, Provider Not In, [facility] [address] [address] [address] [place] [address] Referral ID Status Reason Start Date Expiration Date Visits Re quested Visits Authorized [id number] Closed 12/12/2017 12/12/2018 9 9 Encounter Details Date Type Department Care Team (Latest Contact Info) Description 10/29/2017 Transcribe Orders [facility] [address] [place] [address] Katelynn Finley, MIXER DRIVER [address] [place] [address] [email or web address] Encounter for rehabilitation (Primary Dx) Social [...] Diagnoses Orde r Schedule Ambulatory referral to [facility] Physical Therapy Outpatient Referral Routine Encounter for rehabilitation Ordered: 10/29/2017 documented as of this encounter Visit Diagnoses Diagnosis Encounter for rehabilitation- Primary documented in this encounter Care Teams Cloth Trimmer Hand Relationship Specialty Start Date End Date Arabella Oliveros MD [address] [place] [address] [place] [address] PCP - General Internal Medicine 10/29/17 documented as of this encounter Additional Source Comments The information contained in this document represents components of the legal health record. It is not the complete legal health record.[facility]
== END 2024-05-27 11:37 | disposition home or self-care (01) ==
LOC: HO.MAMMO 11:36
PROVIDERS: PCP Internal Medicine; Visit Provider Obstetrics & Gynecology
DX: Z12.31 Encounter for screening mammogram for malignant neoplasm of breast (principal)
CPT/HCPCS: 77063; 77067

== ENCOUNTER → 2024-05-27 11:45 | Outpatient (BNV) | payer OTHER, SELFPAY | PROVIDERS: PCP Internal Medicine; Visit Provider Internal Medicine | DX: Z12.31 Encounter for screening mammogram for malignant neoplasm of breast (principal) | CPT/HCPCS: 77063; 77067 ==